=== PATIENT | female | born 1950 | race Caucasian/White ===

== ENCOUNTER 2018-10-29 12:19 | Emergency (ER) | payer MEDICARE, OTHER ==
[~2018-10-29] VITALS: Ht 170.2 cm; Wt 104.3 kg
[2018-10-29 12:19] VITALS: BP 142/78
[2018-10-29] MEDS ORDERED: VANCOMYCIN 1 GM in IV D5W 250 ML IV ONE (13:00)
[2018-10-29] MEDS ORDERED: GENTAMICIN 80 MG in IV D5W 50 ML IV ONE (13:00)
== END 2018-10-29 13:37 | disposition home or self-care (01) ==
LOC: ER 12:21
DX: S81.812A Laceration without foreign body, left lower leg, initial encounter (principal); W22.8XXA Striking against or struck by other objects, initial encounter; Y93.89 Activity, other specified; Y92.89 Other specified places as the place of occurrence of the external cause; Y99.8 Other external cause status
CPT/HCPCS: 99283; A4606; J1580; J7060; Z7610

== ENCOUNTER 2018-10-30 11:39 | Outpatient (CLI) | payer MEDICARE, OTHER ==
[2018-10-30] MEDS ORDERED: TETANUS TOXOID ADSORBED IM ONE (13:00)
== END 2018-10-30 23:59 | disposition home or self-care (01) ==
LOC: OPD 11:39
PROVIDERS: ATTEND Podiatrist
DX: Z75.3 Unavailability and inaccessibility of health-care facilities (principal)
CPT/HCPCS: 73590-TC; 90714

== ENCOUNTER 2018-11-01 14:09 | Inpatient (IN) | payer MEDICARE, OTHER ==
[~2018-11-01] VITALS: Ht 170.2 cm; Wt 99.8 kg
--- NOTE | 2018-11-01 14:25 | NUR ---
PT BIB SELF SENT HERE BY PCP FOR ADMISSION FOR LEFT LEG WOUND DEBRIDEMENT, PT IS AAOX4, NOT IN RESPIRATORY DISTRESS, V/S STABLE, KEPT RESTED AND COMFORTABLE.
[2018-11-01] MEDS ORDERED: PIPERACILLIN /TAZOBACTAM 3.375 G in IV D5W 50 ML IV ONE (14:30)
--- NOTE | 2018-11-01 14:32 | NUR ---
PT LABS DRAWNED AND SENT TO LAB.
[2018-11-01] MEDS ORDERED: ALPR2TAB7 PO (14:47)
[2018-11-01] MEDS ORDERED: ALBU8.5H8 IH (14:47)
[2018-11-01] MEDS ORDERED: ESTR10TA VG (14:47)
[2018-11-01] MEDS ORDERED: CYAN10009 PO (14:47)
[2018-11-01] MEDS ORDERED: PHEN15CA PO (14:47)
[2018-11-01] MEDS ORDERED: ARIP10TA9 PO (14:47)
[2018-11-01] MEDS ORDERED: BENA10TA9 PO (14:47)
[2018-11-01] MEDS ORDERED: ERGO500014 PO (14:47)
[2018-11-01] MEDS ORDERED: NYST15PO4 TP (14:47)
[2018-11-01] MEDS ORDERED: FLUO60SO3 TP (14:47)
[2018-11-01] MEDS ORDERED: METF-440 PO (14:47)
[2018-11-01] MEDS ORDERED: FURO-144 PO (14:47)
[2018-11-01] MEDS ORDERED: ATOR40TA PO (14:47)
[2018-11-01] MEDS ORDERED: ASPI-1169 PO (14:47)
[2018-11-01] MEDS ORDERED: METO25TA3 PO (14:47)
[2018-11-01] MEDS ORDERED: METH10TA2 PO (14:47)
[2018-11-01] MEDS ORDERED: OXYB5TAB11 PO (14:47)
[2018-11-01 14:49] LABS: BASOPHILS # (AUTO) 0.1 /CMM (0.0-0.2); BASOPHILS % (AUTO) 1.2 % (0.0-2.0); EOSINOPHILS % (AUTO) 3.4 % (0.0-6.0); HEMATOCRIT 30 % (33-45); HEMOGLOBIN 9.7 g/dL (11.5-14.8); LYMPHOCYTES # (AUTO) 3.7 /CMM (0.8-4.8); LYMPHOCYTES % (AUTO) 34.1 % (20.0-44.0); MEAN CORPUSCULAR HGB CONC 32 g/dl (31.0-36.0); MEAN CORPUSCULAR VOLUME 90 fL (82-100); MONOCYTES # (AUTO) 1.2 /CMM (0.1-1.30); MONOCYTES % (AUTO) 11.1 % (2.0-12.0); NEUTROPHILS # (AUTO) 5.5 /CMM (1.8-8.9); NEUTROPHILS % (AUTO) 50.2 % (43.0-81.0); PLATELET COUNT (AUTO) 471 /CMM (150-450); RED BLOOD CELL COUNT(AUTO) 3.34 MIL/uL (4.0-5.2); WHITE BLOOD COUNT (AUTO) 10.9 K/uL (4.3-11.0)
--- NOTE | 2018-11-01 14:50 | NUR ---
TECH AT BEDSIDE FOR XRAY.
[2018-11-01] MEDS ORDERED: RISP0.253 PO (14:54)
[2018-11-01] MEDS ORDERED: VENL75CA56 PO (14:54)
[2018-11-01] MEDS ORDERED: BENA20TA78 PO (14:54)
[2018-11-01] MEDS ORDERED: DIVA250T PO (14:54)
[2018-11-01] MEDS ORDERED: DEXL60CA3 PO (14:54)
[2018-11-01 15:02] LABS: CALCIUM, SERUM 8.9 mg/dL (8.5-10.1); CREATININE 0.9 mg/dL (0.6-1.3); POTASSIUM 4.4 mmol/L (3.5-5.1)
[2018-11-01 15:18] LABS: ALBUMIN 3.2 g/dL (3.4-5.0); BILIRUBIN,DIRECT 0.1 mg/dL (0.0-0.2); BILIRUBIN,TOTAL 0.2 mg/dL (0.2-1.0); TOTAL PROTEIN, SERUM 7.5 g/dL (6.4-8.2)
--- NOTE | 2018-11-01 15:48 | NUR ---
WOUND CLEANING AND DRESSING DONE BY DOCUMENT PREPARATION SPECIALIST.
--- NOTE | 2018-11-01 16:55 | NUR ---
REPORT GIVEN TO BERNARD SPANN FOR DYLAN.
[2018-11-01] MEDS ORDERED: ONDANSETRON HCL/PF 4 MG/2 ML VIAL IVP PRN (19:00)
[2018-11-01] MEDS ORDERED: ACETAMINOPHEN 325 MG TABLET PO PRN (19:00)
--- NOTE | 2018-11-01 19:15 | NUR ---
MS/RN NOTES RECEIVED PT. LYING IN BED. PT. IS AWAKE, ALERT AND ORIENTED X4. BREATHING EVEN AND UNLABORED ON ROOM AIR. NO SOB, RESPIRATORY DISTRESS OR COMPLAINTS OF PAIN NOTED AT THIS TIME. ORIENTED PT. TO ROOM. PT. WITH LEFT AC 20 GAUGE IV SALINE LOCK PRESENT, PATENT AND INTACT. PT. WITH LEFT LOWER LEG DRESSING PRESENT, CLEAN, DRY AND INTACT. BED LOCKED AND IN LOWEST POSITION, SIDE RAILS UP X2, CALL LIGHT WITHIN REACH, WILL CONTINUE TO MONITOR FOR CHANGES.
[2018-11-01] MEDS ORDERED: FEE PK DOSING 1 MIN EA MC ONE (19:19)
[2018-11-01 20:00] VITALS: BP 148/81
[2018-11-01] MEDS ORDERED: METHADONE HCL 10 MG TABLET PO SCH (21:00)
[2018-11-01] MEDS ORDERED: VANCOMYCIN 1.25 GM in IV D5W 500 ML IV SCH (21:00)
[2018-11-01] MEDS: risperiDONE 0.25 MG TABLET PO SCH (21:16)
[2018-11-01] MEDS: DIVALPROEX SODIUM 250 MG TABLET.DR PO SCH (21:18)
[2018-11-01] MEDS: ATORVASTATIN 40 MG TABLET PO SCH (21:18)
[2018-11-02] MEDS: ZOLPIDEM TARTRATE 5 MG TABLET PO PRN (01:09)
--- NOTE | 2018-11-02 04:30 | NUR ---
MS/RN NOTES PER PHARMACY UNABLE TO VERIFY PT. METHADONE MEDICATION UNTIL VERIFIED WITH MD OR CLINIC THAT ORDERED THE MEDICATION FOR THE PT. PT. STATES IT WAS ORDERED BY HER PAIN MANAGEMENT DOCTER: MD DEE . WILL ENDORSE TO DAYSHIFT NURSE TO FOLLOW UP WITH VERIFYING MEDICATION AND NOTIFYING PHARMACY.
[2018-11-02 06:30] LABS: BASOPHILS # (AUTO) 0.1 /CMM (0.0-0.2); BASOPHILS % (AUTO) 1.3 % (0.0-2.0); EOSINOPHILS % (AUTO) 5.9 % (0.0-6.0); HEMATOCRIT 27 % (33-45); HEMOGLOBIN 8.8 g/dL (11.5-14.8); LYMPHOCYTES # (AUTO) 3.6 /CMM (0.8-4.8); LYMPHOCYTES % (AUTO) 36.5 % (20.0-44.0); MEAN CORPUSCULAR HGB CONC 33 g/dl (31.0-36.0); MEAN CORPUSCULAR VOLUME 88 fL (82-100); MONOCYTES # (AUTO) 1.2 /CMM (0.1-1.30); MONOCYTES % (AUTO) 11.9 % (2.0-12.0); NEUTROPHILS # (AUTO) 4.3 /CMM (1.8-8.9); NEUTROPHILS % (AUTO) 44.4 % (43.0-81.0); PLATELET COUNT (AUTO) 443 /CMM (150-450); RED BLOOD CELL COUNT(AUTO) 3.03 MIL/uL (4.0-5.2); WHITE BLOOD COUNT (AUTO) 9.8 K/uL (4.3-11.0)
[2018-11-02 06:47] LABS: THYROID STIMULATING HORMONE 3.148 uIU/mL (0.358-3.74)
--- NOTE | 2018-11-02 06:50 | NUR ---
MS/RN NOTES PT. IS LYING IN BED RESTING. BREATHING EVEN AND UNLABORED ON ROOM AIR. NO SOB, RESPIRATORY DISTRESS OR COMPLAINTS OF PAIN NOTED AT THIS TIME. PT. WITH LEFT AC 20 GAUGE IV SALINE LOCK PRESENT, PATENT AND INTACT. PT. WITH LEFT LOWER LEG DRESSING PRESENT, CLEAN, DRY AND INTACT. ALL PT. NEEDS MET. PT. HAS REMAIND NPO SINCE 109 PENDING LEFT LEG WOUND DEBRIDEMENT TODAY. BED LOCKED AND IN LOWEST POSITION, SIDE RAILS UP X2, CALL LIGHT WITHIN REACH, WILL ENDORSE TO DAYSHIFT NURSE FOR CONTINUITY OF CARE.
[2018-11-02 06:52] LABS: ALBUMIN 2.5 g/dL (3.4-5.0); BILIRUBIN,TOTAL 0.3 mg/dL (0.2-1.0); CALCIUM, SERUM 8.6 mg/dL (8.5-10.1); CREATININE 0.9 mg/dL (0.6-1.3); MAGNESIUM 1.7 mg/dL (1.8-2.4); PHOSPHORUS 4.6 mg/dL (2.5-4.9); POTASSIUM 3.9 mmol/L (3.5-5.1); TOTAL PROTEIN, SERUM 6.3 g/dL (6.4-8.2)
--- NOTE | 2018-11-02 07:55 | NUR ---
MS/RN OPENING NOTE PATIENT IN BED IN STABLE CONDITION. A/O X 3. NO SIGNS OF ACUTE DISTRESS. NO COMPLAIN OF PAIN OR DISCOMFORT. NPO STATUS AT THIS TIME EXCEPT MEDS FOR POSSIBLE LEFT LEG WOUND DEBRIDEMENT. ALL NEEDS ATTENDED TO. CALL LIGHT WITHIN REACH. WILL CONTINUE TO MONITOR TO ENSURE SAFETY.
[2018-11-02 08:18] VITALS: BP 130/66
[2018-11-02] MEDS: VENLAFAXINE XR 75 MG CAP.SR.24H PO SCH (08:41)
[2018-11-02] MEDS: METOPROLOL SUCCINATE 50 MG TAB.SR.24H PO SCH (08:41)
[2018-11-02] MEDS: VANCOMYCIN 1 GM in IV D5W 250 ML IV SCH ×2 (08:41→21:52)
[2018-11-02] MEDS: DIVALPROEX SODIUM 250 MG TABLET.DR PO SCH ×2 (08:42→21:58)
[2018-11-02] MEDS: OXYBUTYNIN CHLORIDE 5 MG TABLET PO SCH ×2 (08:42→17:22)
[2018-11-02] MEDS: BENAZEPRIL HCL 20 MG TABLET PO SCH (08:44)
--- NOTE | 2018-11-02 09:55 | NUR ---
MS/RN SPOKE WITH ALYSSA FROM DR FRANCOIS'S OFFICE AND MADE AWARE NEED ORDERS FOR SURGERY TODAY SCHEDULE LATER AROUND 1130AM FOR POSSIBLE LEFT LEG WOUND DEBRIDEMENT AND CONSENT NEEDED.
--- NOTE | 2018-11-02 10:19 | NUR ---
MS/RN RECEIVED CALL FROM DR FRANCOIS FOR TO OBTAIN PROCEDURE CONSENT FOR DEBRIEDMENT OF NECROTIC TISSUE LEFT LEG.
[2018-11-02] MEDS: Magnesium 1GM/D5W 100ML PREMIX 100 ML IV SCH ×2 (10:43→14:02)
[2018-11-02] MEDS ORDERED: LIDOCAINE HCL/PF 1% 30 ML SDV ONE (12:21)
[2018-11-02] MEDS ORDERED: BUPIVACAINE MPF 0.5% W/EPI INJ 30 ML VIAL ONE (12:21)
--- NOTE | 2018-11-02 13:35 | NUR ---
MS/RN RETURNED FROM S/P LEFT LEG NECROTIC TISSUE DEBERIEDMENT. NO SIGNS OF ACUTE DISTRESS. NO COMPLAIN OF PAIN OR DISCOMFORT. ALL NEEDS ATTENDED TO. CALL LIGHT WITHIN REACH. WILL CONTINUE TO MONITOR TO ENSURE SAFETY.
--- NOTE | 2018-11-02 14:03 | NUR ---
MS/RN MAGNESIUM DUE AT 11:14AM ADMINISTERED LATE SECONDARY TO PATIENT HAVING SURGERY AND NOT ON FLOOR.
[2018-11-02 16:22] VITALS: BP 134/76
[2018-11-02] MEDS: ASPIRIN 81 MG TAB.CHEW PO SCH (17:22)
[2018-11-02] MEDS: risperiDONE 0.25 MG TABLET PO SCH (17:22)
[2018-11-02] MEDS: ATORVASTATIN 40 MG TABLET PO SCH (17:22)
--- NOTE | 2018-11-02 18:39 | NUR ---
MS/RN CLOSING NOTE PATIENT IN BED IN STABLE CONDITION. A/O X 4. NO SIGNS OF ACUTE DISTRESS. NO COMPLAIN OF PAIN OR DISCOMFORT. AMBULATES TO BATHROOM WITH ASSIST. S/P LEFT LOWER LEG NECROTIC TISSUE DEBRIDEMENT, DRESSING IN PLACE. ALL NEEDS ATTENDED TO. CALL LIGHT WITHIN REACH. WILL ENDORSE TO NEXT SHIFT FOR CONTINUITY OF CARE.
--- NOTE | 2018-11-02 19:12 | NUR ---
MS/RN NOTES RECEIVED PT. LYING IN BED RESTING. PT. IS EASILY AROUSABLE TO NAME. PT. IS AWAKE, ALERT AND ORIENTED X4. BREATHING EVEN AND UNLABORED ON ROOM AIR. NO SOB, RESPIRATORY DISTRESS OR COMPLAINTS OF PAIN NOTED AT THIS TIME. PT. WITH LEFT AC 20 GAUGE IV SALINE LOCK PRESENT, PATENT AND INTACT. PT. WITH LEFT LOWER LEG POST OP DRESSING PRESENT, CLEAN, DRY AND INTACT. NO BLEEDING OR DRAINAGE NOTED. PT. BILATERAL PEDAL PULSES +3. PT. EDUCATED ON CALLING FOR ASSISTANCE BEFORE AMBULATING TO BATHROOM. PT. VERBALIZED UNDERSTANDING. BED LOCKED AND IN LOWEST POSITION, SIDE RAILS UP X2, BED ALARM ON, CALL LIGHT WITHIN REACH, WILL CONTINUE TO MONITOR.
[2018-11-02 20:00] VITALS: BP 135/73
[2018-11-02] MEDS: METHADONE HCL 10 MG TABLET PO SCH (21:58)
[2018-11-03] MEDS: ZOLPIDEM TARTRATE 5 MG TABLET PO PRN (00:34)
[2018-11-03] MEDS: HYDROCODONE/APAP 10/325MG 1 EA TABLET PO PRN ×3 (03:12→17:39)
[2018-11-03 07:00] VITALS: BP 146/80
--- NOTE | 2018-11-03 07:00 | NUR ---
MS/RN NOTES PT. IS LYING IN BED RESTING. BREATHING EVEN AND UNLABORED ON ROOM AIR. NO SOB, RESPIRATORY DISTRESS OR COMPLAINTS OF PAIN NOTED AT THIS TIME. PT. WITH LEFT AC 20 GAUGE IV SALINE LOCK PRESENT, PATENT AND INTACT. PT. WITH LEFT LOWER LEG POST OP DRESSING PRESENT, CLEAN, DRY AND INTACT. NO BLEEDING OR DRAINAGE NOTED. PT. BILATERAL PEDAL PULSES +3 THROUGHOUT SHIFT. ALL PT. NEEDS MET. BED LOCKED AND IN LOWEST POSITION, SIDE RAILS UP X2, BED ALARM ON, CALL LIGHT WITHIN REACH, WILL ENDORSE TO DAYSHIFT NURSE FOR CONTINUITY OF CARE.
--- NOTE | 2018-11-03 07:40 | NUR ---
MS/RN OPENING NOTE PATIENT IN BED IN STABLE CONDITION. A/O X 4. NO SIGNS OF ACUTE DISTRESS. NO COMPLAIN OF PAIN OR DISCOMFORT. ALL NEEDS ATTENDED TO. CALL LIGHT WITHIN REACH. WILL CONTINUE TO MONITOR TO ENSURE SAFETY.
[2018-11-03 08:00] VITALS: BP 152/82
[2018-11-03 08:32] LABS: BASOPHILS # (AUTO) 0.1 /CMM (0.0-0.2); EOSINOPHILS % (AUTO) 1.4 % (0.0-6.0); HEMATOCRIT 27 % (33-45); HEMOGLOBIN 8.9 g/dL (11.5-14.8); LYMPHOCYTES % (AUTO) 34.7 % (20.0-44.0); MEAN CORPUSCULAR HGB CONC 33 g/dl (31.0-36.0); MEAN CORPUSCULAR VOLUME 88 fL (82-100); MONOCYTES # (AUTO) 1.3 /CMM (0.1-1.30); MONOCYTES % (AUTO) 11.3 % (2.0-12.0); NEUTROPHILS % (AUTO) 51.6 % (43.0-81.0); PLATELET COUNT (AUTO) 450 /CMM (150-450); RED BLOOD CELL COUNT(AUTO) 3.09 MIL/uL (4.0-5.2); WHITE BLOOD COUNT (AUTO) 11.6 K/uL (4.3-11.0)
[2018-11-03 08:36] LABS: CALCIUM, SERUM 8.2 mg/dL (8.5-10.1); CREATININE 0.8 mg/dL (0.6-1.3); MAGNESIUM 2.2 mg/dL (1.8-2.4); POTASSIUM 3.8 mmol/L (3.5-5.1)
[2018-11-03] MEDS: BENAZEPRIL HCL 20 MG TABLET PO SCH (08:36)
[2018-11-03] MEDS: VENLAFAXINE XR 75 MG CAP.SR.24H PO SCH (08:36)
[2018-11-03] MEDS: OXYBUTYNIN CHLORIDE 5 MG TABLET PO SCH ×2 (08:36→17:39)
[2018-11-03] MEDS: DIVALPROEX SODIUM 250 MG TABLET.DR PO SCH ×2 (08:36→20:07)
[2018-11-03] MEDS: VANCOMYCIN 1 GM in IV D5W 250 ML IV SCH ×2 (08:36→20:09)
[2018-11-03] MEDS: METOPROLOL SUCCINATE 50 MG TAB.SR.24H PO SCH (08:37)
[2018-11-03] MEDS: METHADONE HCL 10 MG TABLET PO SCH ×2 (08:37→20:08)
[2018-11-03 16:00] VITALS: BP 152/86
[2018-11-03] MEDS: risperiDONE 0.25 MG TABLET PO SCH (17:39)
[2018-11-03] MEDS: ATORVASTATIN 40 MG TABLET PO SCH (17:39)
[2018-11-03] MEDS: ASPIRIN 81 MG TAB.CHEW PO SCH (17:39)
--- NOTE | 2018-11-03 19:20 | NUR ---
MS RN OPENING NOTE RECEIVED PATIENT IN BED IN STABLE CONDITION. A/O X 3. NO SIGNS OF ACUTE DISTRESS. NO COMPLAIN OF PAIN OR DISCOMFORT AT HIS TIME. IV ACCESS TO LAC, SL, INTACT PATENT. BRP WITH ASSIST. ALL NEEDS ATTENDED TO. CALL LIGHT WITHIN REACH. WILL CONTINUE TO MONITOR TO ENSURE SAFETY.
--- NOTE | 2018-11-03 19:28 | NUR ---
MS/RN CLOSING NOTE PATIENT IN BED IN STABLE CONDITION. A/O X 4. NO SIGNS OF ACUTE DISTRESS. NO COMPLAIN OF PAIN OR DISCOMFORT. ALL NEEDS ATTENDED TO. CALL LIGHT WITHIN REACH. WILL ENDORSE TO NEXT SHIFT FOR CONTINUITY OF CARE.
[2018-11-03 20:00] VITALS: BP 146/80
--- NOTE | 2018-11-03 20:08 | NUR ---
MS RN NOTE PATIENT REQUESTED TO TAKE SCHEDULED METHADONE & OTHER SCHEDULED MEDS AT THIS TIME SO SHE COULD TRY TO GO TO SLEEP. PATIENT'S BP WAS CHECKED BEFORE GIVING SCHEDULED MEDS, 143/77, 64, 20, 98, 97% AT RA. NO COMPLICATIONS NOTED. WILL MONITOR CLOSELY.
[2018-11-03 21:49] VITALS: BP 146/80
[2018-11-04] MEDS: ZOLPIDEM TARTRATE 5 MG TABLET PO PRN (00:54)
--- NOTE | 2018-11-04 00:54 | NUR ---
PRN AMBIEN GIVEN PATIENT REQUESTED TO GET AMBIEN AT THIS TIME FOR SLEEPLESSNESS, PRN AMBIEN GIVEN, WILL REASSESS FOR EFFECTIVENESS.
[2018-11-04 06:27] LABS: CALCIUM, SERUM 8.6 mg/dL (8.5-10.1); CREATININE 0.7 mg/dL (0.6-1.3)
[2018-11-04] MEDS: HYDROCODONE/APAP 10/325MG 1 EA TABLET PO PRN ×2 (06:32→18:06)
--- NOTE | 2018-11-04 06:32 | NUR ---
PRN NORCO GIVEN PATIENT REQUESTED TO GET NORCO FOR BACK PAIN 04/22, BP 152/79, 64, 20, 97.4. PRN NORCO GIVEN, WILL REASSESS FOR EFFECTIVENESS.
--- NOTE | 2018-11-04 06:55 | NUR ---
MS RN CLOSING NOTE PATIENT SLEPT WELL AFTER TAKING AMBIEN AT NIGHT & IN STABLE CONDITION. A/O X 3. NO SIGNS OF ACUTE DISTRESS. COMPLAIN OF BACK PAIN WAS VERBALIZED, PRN NORCO GIVEN. IV ACCESS TO LAC, SL, INTACT PATENT. BRP WITH HER WALKER/STEADY WITH THE WALKER. ALL NEEDS ATTENDED TO. BED IN LOW LOCKED POSITION. CALL LIGHT WITHIN REACH. WILL ENDORSE TO AM RN.
--- NOTE | 2018-11-04 07:45 | NUR ---
MS RN OPENING NOTES RECEIVED PT LAYING IN BED. PT IS A/O X43, AFEBRILE. EASILY AROUSABLE. RESPIRATIONS ARE EVEN AND UNLABORED, NOT IN ANY ACUTE DISTRESS NOTED. PT DENIES ANY PAIN AT THIS TIME, NO C/O SOB, N/V. IV SITE IS INTACT TO LAC, NO INFILTRATION NOTED. DRESSING KEPT CLEAN AND DRY. SAFETY MEASURES ARE IN PLACE. INSTRUCTED PT TO USE CALL LIGHT WHEN ASSISTANCE IS NEEDED, CALL LIGHT IS LEFT WITHIN REACH. WILL CONTINUE TO MONITOR THROUGHOUT SHIFT FOR CONTINUITY OF CARE.
[2018-11-04 08:00] VITALS: BP 144/71
[2018-11-04] MEDS: VENLAFAXINE XR 75 MG CAP.SR.24H PO SCH (08:38)
[2018-11-04] MEDS: DIVALPROEX SODIUM 250 MG TABLET.DR PO SCH ×2 (08:38→21:17)
[2018-11-04] MEDS: METHADONE HCL 10 MG TABLET PO SCH ×2 (08:38→21:17)
[2018-11-04] MEDS: OXYBUTYNIN CHLORIDE 5 MG TABLET PO SCH ×2 (08:38→17:16)
[2018-11-04] MEDS: METOPROLOL SUCCINATE 50 MG TAB.SR.24H PO SCH (08:40)
[2018-11-04] MEDS: BENAZEPRIL HCL 20 MG TABLET PO SCH (08:40)
[2018-11-04] MEDS: VANCOMYCIN 1 GM in IV D5W 250 ML IV SCH ×2 (08:40→21:17)
[2018-11-04 12:00] VITALS: BP 144/71
--- NOTE | 2018-11-04 15:00 | NUR ---
MS RN NOTES-- PT SEEN AND EXAMINED BY DR. FRANCOIS AND STATED NOT TO TAKE OUT THE DRESSING TO LLE. PT MADE AWARE.
[2018-11-04 16:00] VITALS: BP 138/77
[2018-11-04] MEDS: ASPIRIN 81 MG TAB.CHEW PO SCH (17:15)
[2018-11-04] MEDS: ATORVASTATIN 40 MG TABLET PO SCH (17:16)
[2018-11-04] MEDS: risperiDONE 0.25 MG TABLET PO SCH (17:16)
--- NOTE | 2018-11-04 18:33 | NUR ---
MS WAGNER CLOSING NOTES ALL DUE MEDS GIVEN, NEEDS MET AND RENDERED. PT REMAINS A/O X3, USING PEN AND PAPER. PT IS DEAF AND MUTE BUT IS ABLE TO MAKE NEEDS KNOWN. RESPIRATIONS ARE EVEN AND UNLABORED, NOT IN ANY ACUTE DISTRESS NOTED. DENIES ANY CHEST PAIN, SOB,N/V. IV SITE TO LAC INTACT, NO INFILTRATION NOTED. DRESSING KEPT CLEAN AND DRY. SAFETY MEASURES ARE IN PLACE. BED IS IN ITS LOCKED AND LOWEST POSITION. REMINDED PT TO USE CALL LIGHT WHEN ASSISTANCE IS NEEDED, CALL LIGHT IS LEFT WITHIN REACH. WILL ENDORSE TO NEXT SHIFT FOR CONTINUITY OF CARE. Addendum: 11/04/18 at 1836 by GRZEGORZ FORREST RN INCORRECT CHART.
--- NOTE | 2018-11-04 18:36 | NUR ---
MS RN CLOSING NOTES ALL DUE MEDS GIVEN, NEEDS MET AND RENDERED. PT REMAINS A/O X3, AFEBRILE. RESPIRATIONS ARE EVEN AND UNLABORED, NOT IN ANY ACUTE DISTRESS NOTED. DENIES ANY CHEST PAIN, SOB,N/V. IV SITE TO LAC INTACT, NO INFILTRATION NOTED. DRESSING KEPT CLEAN AND DRY. SAFETY MEASURES ARE IN PLACE. BED IS IN ITS LOCKED AND LOWEST POSITION. REMINDED PT TO USE CALL LIGHT WHEN ASSISTANCE IS NEEDED, CALL LIGHT IS LEFT WITHIN REACH. WILL ENDORSE TO NEXT SHIFT FOR CONTINUITY OF CARE.
[2018-11-04 20:00] VITALS: BP 141/70
--- NOTE | 2018-11-04 20:00 | NUR ---
MS/RN OPENING NOTES RECEIVED PATIETN IN BED, RESTING COMFORTABLY IN BED, ABLE TO MAKE GOOD EYE CONTACT, COOPERATIVE TO CARE, VERBALIZES NEEDS, RESPIRATIONS EVEN AND UNLABORED, CALL LIGHTS WITHIN REACH, BED LOCKED, NO PAIN REPORTED AND OBSERVED.. LEFT LEG WOUND. S/P DEBRIDEMENT, WILL MONITOR, BED LOCKED.
[2018-11-05] MEDS: ZOLPIDEM TARTRATE 5 MG TABLET PO PRN (01:32)
--- NOTE | 2018-11-05 01:34 | NUR ---
MS/RN NOTES PATIENT REQUESTED FOR SLEEP MEDICATION, UNABLE TO SLEEP, NEEDED MEDICATION FOR SLEEP AMNIEN GIVEN
[2018-11-05] MEDS: HYDROCODONE/APAP 10/325MG 1 EA TABLET PO PRN (06:25)
--- NOTE | 2018-11-05 06:28 | NUR ---
MS/RN NOTES PATIENT VERBALIZED PAIN 7/10 ALL OVER BODY, REQUESTING FOR PAIN NORCO 10-325 MG PO, WILL MONITOR, PAIN RELIEF.
--- NOTE | 2018-11-05 06:43 | NUR ---
325-1 MS/RN NOTES PATIENT RESTING COMFORTABLY, SLEPT INTERMITENTLY, RESPIRATIONS EVEN AND UNLABORED, SKIN WARM TO TOUCH, ALERT, ORIENTED AND PARTICIPATIVE TO CARE, ASSISTED TO BATHROOM, MONITORED AND MANAGED FOR PAIN. WILL ENDORSE TO AM RN FOR DYLAN.
--- NOTE | 2018-11-05 07:40 | NUR ---
MS RN OPENING NOTES RECEIVED PT LAYING IN BED. PT IS A/O X3, AFEBRILE. EASILY AROUSABLE. RESPIRATIONS ARE EVEN AND UNLABORED, NOT IN ANY ACUTE DISTRESS NOTED. PT DENIES ANY PAIN AT THIS TIME, NO C/O SOB, N/V. IV SITE IS INTACT TO L HAND, NO INFILTRATION NOTED. DRESSING KEPT CLEAN AND DRY. SAFETY MEASURES ARE IN PLACE. INSTRUCTED PT TO USE CALL LIGHT WHEN ASSISTANCE IS NEEDED, CALL LIGHT IS LEFT WITHIN REACH. WILL CONTINUE TO MONITOR THROUGHOUT SHIFT FOR CONTINUITY OF CARE.
[2018-11-05 08:00] VITALS: BP 134/82
[2018-11-05 08:03] LABS: CALCIUM, SERUM 8.7 mg/dL (8.5-10.1); CREATININE 0.9 mg/dL (0.6-1.3)
[2018-11-05] MEDS: VENLAFAXINE XR 75 MG CAP.SR.24H PO SCH (08:49)
[2018-11-05] MEDS: METHADONE HCL 10 MG TABLET PO SCH (08:49)
[2018-11-05] MEDS: DIVALPROEX SODIUM 250 MG TABLET.DR PO SCH (08:49)
[2018-11-05] MEDS: OXYBUTYNIN CHLORIDE 5 MG TABLET PO SCH (08:49)
[2018-11-05 08:50] VITALS: BP 134/82
[2018-11-05] MEDS: BENAZEPRIL HCL 20 MG TABLET PO SCH (08:50)
[2018-11-05] MEDS: VANCOMYCIN 1 GM in IV D5W 250 ML IV SCH (08:50)
[2018-11-05] MEDS: METOPROLOL SUCCINATE 50 MG TAB.SR.24H PO SCH (08:50)
--- NOTE | 2018-11-05 11:00 | NUR ---
MS RN NOTES-- RECEIVED A CALL FROM DR. FRANCOIS FOR ORDERS TO DISCHARGE THE PT HOME WITH [facility], RESUME HOME MEDICATIONS, START KEFLEX 500MG PO TID X10 DAYS. PER DR. FRANCOIS, HE SPOKE WITH DR. LÓPEZ AND AGREED TO DISCHARGE THE PATIENT.
--- NOTE | 2018-11-05 13:45 | NUR ---
MS RN NOTES-- RECEIVED A CALL BACK FROM DR. LÓPEZ STATING IT IS OKAY TO DISCHARGE THE PATIENT BACK HOME.
--- NOTE | 2018-11-05 13:46 | NUR ---
MS RN NOTES-- EXPLAINED DISCHARGE PAPERWORK TO PT WITH VERBAL AND WRITTEN UNDERSTANDING.
--- NOTE | 2018-11-05 14:45 | NUR ---
MS BILLING REPRESENTATIVE NOTE PT DISCHARGED TO HOME WITH HOME HEALTH SERVICES. PT IS A/OX4, AFEBRILE. RESPIRATIONS ARE EVEN AND UNLABORED, NOT IN ANY ACUTE DISTRESS NOTED. PUPILS ARE REACTIVE TO LIGHT, BILATERAL HAND BILLET HEADER ARE STRONG AND EQUAL. PT DENIES ANY PAIN AT THIS TIME, NO C/O SOB, N/V. ABDOMEN IS SOFT AND NONDISTENDED, BOWEL SOUNDS ARE PRESENT IN ALL 4 QUADRANTS UPON AUSCULTATION. DENIES ANY BLADDER DISCOMFORT. DRESSING KEPT CLEAN AND DRY AND INTACT TO LLE. IV ACCESS REMOVED, APPLIED PRESSURE AND TOLERATED WELL. ID BANDS REMOVED. ALL BELONGINGS TAKEN WITH PT. PT LEFT IN STABLE CONDITION VIA TAXI, ACCOMPANIED TO TAXI BY 1 STAFF ASSISTANCE W/ FWW.
== END 2018-11-05 14:49 | disposition home health service (06) | DRG 580 ==
LOC: ER 14:11 → MED 16:42
PROVIDERS: ADMIT Family Medicine; ATTEND Internal Medicine
PROC: 0KBT0ZZ Excision of Left Lower Leg Muscle, Open Approach (ICD-10-PCS; principal; 2018-11-01)
DX: L03.116 Cellulitis of left lower limb (principal); E87.1 Hypo-osmolality and hyponatremia; E87.2 Acidosis; E44.0 Moderate protein-calorie malnutrition; L98.495 Non-pressure chronic ulcer of skin of other sites with muscle involvement without evidence of necrosis; I10 Essential (primary) hypertension; E78.5 Hyperlipidemia, unspecified; R73.03 Prediabetes; D63.8 Anemia in other chronic diseases classified elsewhere; E83.42 Hypomagnesemia; E86.1 Hypovolemia; F17.210 Nicotine dependence, cigarettes, uncomplicated; Z68.34 Body mass index [BMI] 34.0-34.9, adult; M54.40 Lumbago with sciatica, unspecified side; G89.29 Other chronic pain; I87.2 Venous insufficiency (chronic) (peripheral); S81.822A Laceration with foreign body, left lower leg, initial encounter; B95.1 Streptococcus, group B, as the cause of diseases classified elsewhere; F99 Mental disorder, not otherwise specified; I25.10 Atherosclerotic heart disease of native coronary artery without angina pectoris; E66.01 Morbid (severe) obesity due to excess calories; Z80.3 Family history of malignant neoplasm of breast; Z85.3 Personal history of malignant neoplasm of breast; Z90.710 Acquired absence of both cervix and uterus
CPT/HCPCS: 36415; 71045-TC; 73590-TC; 80048-TC; 80053-TC; 80061-TC; 80076-TC; 80202-TC; 83540-TC; 83605-TC; 83735-TC; 84100-TC; 84443-TC; 85025-TC; 85730-TC; 87040-TC; 87070-TC; 87081-TC; 90714; A4606; A6402; G0378; J1100; J2543; J2704; J3370; J3475; J3490; J7030; J7050; J7060; Z7610

== ENCOUNTER 2019-04-20 11:10 | Inpatient (IN) | payer MEDICARE, OTHER ==
[~2019-04-20] VITALS: Ht 170.2 cm; Wt 103.9 kg
[~2019-04-20 11:10] MED LIST: ASPI-1169 PO; ATOR40TA PO; BENA20TA78 PO; DEXL60CA3 PO; DIVA250T PO; METF-440 PO; METH10TA2 PO; METO25TA3 PO; OXYB5TAB11 PO; RISP0.253 PO; VENL75CA56 PO
--- NOTE | 2019-04-20 11:59 | NUR ---
PT BROUGHT IN BY PARAMEDICS From Home Generalized Weakness/Fall/NOT able to care for self PT NOTED TO HAVE WALKER BILATERAL LEGS SWOLLEN PT ALERT AND ORIENTED X 3 REQUEST BED BACK BE LFTED UP AND DOWN WILL CONTINUE TO EVALUATE
[2019-04-20] MEDS ORDERED: IV NS 0.9% 500 ML BAG IV ONE (12:30)
[2019-04-20 12:31] LABS: BASOPHILS % (AUTO) 0.2 % (0.0-2.0); HEMATOCRIT 35 % (33-45); HEMOGLOBIN 11.5 g/dL (11.5-14.8); LYMPHOCYTES # (AUTO) 1.3 /CMM (0.8-4.8); LYMPHOCYTES % (AUTO) 5.1 % (20.0-44.0); MEAN CORPUSCULAR HGB CONC 33 g/dl (31.0-36.0); MEAN CORPUSCULAR VOLUME 83 fL (82-100); MONOCYTES # (AUTO) 2.5 /CMM (0.1-1.30); MONOCYTES % (AUTO) 10.3 % (2.0-12.0); NEUTROPHILS # (AUTO) 20.6 /CMM (1.8-8.9); NEUTROPHILS % (AUTO) 84.4 % (43.0-81.0); PLATELET COUNT (AUTO) 498 /CMM (150-450); RED BLOOD CELL COUNT(AUTO) 4.25 MIL/uL (4.0-5.2); WHITE BLOOD COUNT (AUTO) 24.5 K/uL (4.3-11.0)
[2019-04-20] MEDS ORDERED: MELO15TA13 PO (13:12)
[2019-04-20] MEDS ORDERED: ALPR0.5T PO (13:12)
[2019-04-20] MEDS ORDERED: OMEP20TA20 PO (13:12)
[2019-04-20] MEDS ORDERED: MULT-447 PO (13:12)
[2019-04-20] MEDS ORDERED: ATEN50TA PO (13:12)
[2019-04-20] MEDS ORDERED: ARIP10TA9 PO (13:12)
[2019-04-20] MEDS ORDERED: CHOL200026 PO (13:12)
[2019-04-20] MEDS ORDERED: TRAZ150T75 PO (13:12)
[2019-04-20] MEDS ORDERED: ALPR1TAB2 PO (13:12)
[2019-04-20] MEDS ORDERED: FURO-144 PO (13:12)
[2019-04-20] MEDS ORDERED: METF-440 PO (13:12)
[2019-04-20 13:14] LABS: CALCIUM, SERUM 9.3 mg/dL (8.5-10.1); POTASSIUM 4.1 mmol/L (3.5-5.1)
--- NOTE | 2019-04-20 13:16 | NUR ---
PAGED DR LÓPEZ
[2019-04-20 13:20] LABS: BILIRUBIN,DIRECT 0.1 mg/dL (0.0-0.2); BILIRUBIN,TOTAL 0.6 mg/dL (0.2-1.0); TOTAL PROTEIN, SERUM 7.7 g/dL (6.4-8.2)
--- NOTE | 2019-04-20 13:31 | NUR ---
CALLED FOR TELE BED
[2019-04-20 14:00] LABS: APPEARANCE,URINE Cloudy (CLEAR); BILIRUBIN,URINE Negative (NEGATIVE); BLOOD, URINE Moderate Ery/uL (NEGATIVE); COLOR,URINE Yellow (YELLOW); KETONES,URINE Negative (NEGATIVE); LEUKOCYTE ESTERASE ,URINE Large (NEGATIVE); NITRITE, URINE Positive (NEGATIVE); PROTEIN,URINE 100 mg/dl (NEGATIVE); UGLUCOSE Negative (NEGATIVE); UROBILINOGEN,URINE 0.2 EU/dL (0.2)
[2019-04-20 14:11] LABS: WBC,URINE 51-80 /HPF (0-3)
[2019-04-20 14:12] LABS: BACTERIA,URINE 3+ /HPF (None Seen); SQUAMOUS EPITHELIAL CELL,UR Few /HPF (None Seen)
--- NOTE | 2019-04-20 14:48 | NUR ---
RECIEVED BED 326-1 REPORT WILL BE GIVEN TO LAURENT
--- NOTE | 2019-04-20 16:21 | NUR ---
RN MS NOTES Received patient on room air, no sob noted, patient denies pain at this time. Patient has a lópez catheter but is currently empty. Patient stated that she went to the restroom before they put it in. Patient;s lower extremities are taken a photo of. Groin area reddened as well, taken a photo. Patient's bed at the lowest setting, call light within reach.
[2019-04-20] MEDS: IV NS 0.9% 1,000 ML IV SCH (18:31)
--- NOTE | 2019-04-20 19:30 | NUR ---
ENVIRONMENTAL INSPECTOR OPENING NOTES Received patient sitting up in bed, alert, oriented x 2. Breathing even and unlabored. Not in any distress. Peripheral IV infusing at 75mL/hr. Tele monitor in place- sinus tach 120. As per vehicle operator technician, patient has been ST since she came into the unit. Safety measures in place; call light within reach, bed in low, locked position. Will continue to monitor accordingly
--- NOTE | 2019-04-20 19:36 | NUR ---
RN MS NOTES Patient remains on room air, no sob noted. Patient denies pain at this time. Patient has a NS IVF running at 75 ML/hour. lópez catheter is draining well at this time. medication orders from Dr. Weeks was faxed to pharmacy. Charge Nurse aware of the list. Bed at the lowest setting, call light within reach. Patient has access to the telephone.
--- NOTE | 2019-04-20 19:50 | NUR ---
RN NOTES Lab called with critical value of Troponin I- 0.653. Dr. Weeks informed. No new orders
[2019-04-20 20:00] VITALS: BP 154/80
[2019-04-20] MEDS ORDERED: ENOXAPARIN SODIUM 40 MG/0.4 ML DISP.SYRIN SQ SCH (20:00)
[2019-04-20] MEDS ORDERED: CEFTRIAXONE 1 G VIAL ONE (20:18)
[2019-04-20] MEDS: CEFTRIAXONE 1 G in IV D5W 50 ML IV SCH (20:20)
[2019-04-20] MEDS ORDERED: DOXYCYCLINE 100 MG VIAL ONE (21:26)
[2019-04-20] MEDS: DOXYCYCLINE 100 MG in IV D5W 100 ML IV SCH (21:41)
[2019-04-20] MEDS: ENOXAPARIN SODIUM 40 MG/0.4 ML DISP.SYRIN SQ SCH (21:53)
[2019-04-20] MEDS: METHADONE HCL 10 MG TABLET PO SCH (23:11)
--- NOTE | 2019-04-20 23:11 | NUR ---
RN NOTES Patient c/o lower back and R) hip pain, 06/22. Methadone 10mg PO given as ordered. Will continue to monitor
[2019-04-20] MEDS: risperiDONE 1 MG TABLET PO SCH (23:59)
[2019-04-21] VITALS: BP 139/92
[2019-04-21] MEDS: TRAZODONE 50 MG TABLET PO SCH ×2 (00:49→22:00)
[2019-04-21 04:00] VITALS: BP 121/75
[2019-04-21 06:23] LABS: BASOPHILS # (AUTO) 0.1 /CMM (0.0-0.2); BASOPHILS % (AUTO) 0.3 % (0.0-2.0); HEMATOCRIT 33 % (33-45); HEMOGLOBIN 10.7 g/dL (11.5-14.8); LYMPHOCYTES # (AUTO) 2.4 /CMM (0.8-4.8); LYMPHOCYTES % (AUTO) 10.5 % (20.0-44.0); MEAN CORPUSCULAR HGB CONC 33 g/dl (31.0-36.0); MEAN CORPUSCULAR VOLUME 84 fL (82-100); MONOCYTES # (AUTO) 2.5 /CMM (0.1-1.30); MONOCYTES % (AUTO) 10.6 % (2.0-12.0); NEUTROPHILS # (AUTO) 18.4 /CMM (1.8-8.9); NEUTROPHILS % (AUTO) 78.6 % (43.0-81.0); PLATELET COUNT (AUTO) 440 /CMM (150-450); RED BLOOD CELL COUNT(AUTO) 3.96 MIL/uL (4.0-5.2); WHITE BLOOD COUNT (AUTO) 23.4 K/uL (4.3-11.0)
[2019-04-21 06:41] LABS: CREATININE 1.2 mg/dL (0.6-1.3); POTASSIUM 3.3 mmol/L (3.5-5.1)
--- NOTE | 2019-04-21 06:50 | NUR ---
WEB SITE ADMINISTRATOR CLOSING NOTES Patient sleeping in bed, easily arousable. Breathing even and unlabored. Not in any distress. Peripheral IV infusing at 75mL/hr. Tele monitor in place- sinus tachy 118. Lozano catheter in place, draining clear, yellow urine. Safety measures in place; call cespedes within reach, bed in low, locked position. Will endorse DYLAN to oncoming RN
--- NOTE | 2019-04-21 07:09 | NUR ---
RN NOTES Telephone order from Dr. Weeks of Ava 10-325mg PO Q4H PRN for pain. Order noted and carried out
[2019-04-21] MEDS ORDERED: HYDROCODONE/APAP 10/325MG 1 EA TABLET PO PRN (07:30)
--- NOTE | 2019-04-21 07:30 | NUR ---
RN MS OPENING NOTES Patient remains on room air, no sob noted. IVF infusing at 75 mL per hour. Lozano catheter in place and is draining urine. Patient lying down comfortably in bed, no s/s of pain at this time.
[2019-04-21 08:00] VITALS: BP 116/67
[2019-04-21] MEDS: DOXYCYCLINE 100 MG in IV D5W 100 ML IV SCH (08:57)
[2019-04-21] MEDS ORDERED: VENLAFAXINE XR 75 MG CAP.SR.24H PO SCH (09:00)
[2019-04-21] MEDS ORDERED: METHADONE HCL 10 MG TABLET PO SCH ×2 (09:00)
[2019-04-21] MEDS ORDERED: METFORMIN 500 MG TABLET PO SCH (09:00)
[2019-04-21] MEDS: ARIPIPRAZOLE 5 MG TABLET PO SCH (09:04)
[2019-04-21] MEDS: METFORMIN 500 MG TABLET PO SCH ×2 (09:04→16:31)
[2019-04-21] MEDS: VENLAFAXINE XR 75 MG CAP.SR.24H PO SCH (09:05)
[2019-04-21] MEDS: BENAZEPRIL HCL 20 MG TABLET PO SCH (09:05)
[2019-04-21] MEDS: METOPROLOL SUCCINATE 50 MG TAB.SR.24H PO SCH (09:05)
[2019-04-21] MEDS: METHADONE HCL 10 MG TABLET PO SCH ×3 (09:14→16:32)
[2019-04-21] MEDS: IV NS 0.9% 1,000 ML IV SCH ×2 (09:15→20:48)
[2019-04-21] MEDS ORDERED: POTASSIUM CHLORIDE 20 MEQ TAB.PRT.SR PO SCH (09:30)
[2019-04-21 10:21] LABS: BAND % (MANUAL) 6 % (0.0-5.0); LYMPHOCYTES % (MANUAL) 11 % (16-48); MONOCYTES % (MANUAL) 6 % (0-11.0); NEUTROPHILS % (MANUAL) 77 (42-76)
[2019-04-21 16:00] VITALS: BP 123/72
[2019-04-21] MEDS: risperiDONE 1 MG TABLET PO SCH (17:07)
[2019-04-21] MEDS: ATORVASTATIN 40 MG TABLET PO SCH (17:07)
[2019-04-21] MEDS: ASPIRIN 81 MG TAB.CHEW PO SCH (17:07)
[2019-04-21] MEDS ORDERED: risperiDONE 0.25 MG TABLET PO SCH (18:00)
--- NOTE | 2019-04-21 18:19 | NUR ---
RN MS CLOSING NOTES Patient remains on room air, no sob noted. Patient lying down comfortably on bed. All needs and medication given to patient. Right ac #20 remains open and unobstructed. 75 ML per hour. Lozano catheter is removed per Dr. Carroll's order. PT eval tomorrow am pending, methadone 40 mg BID now as well per MD's order. Will give report to NOC RN for DYLAN bedside.
--- NOTE | 2019-04-21 19:55 | NUR ---
RN INITIAL NOTES; RECEIVED REPORT FORM LAURENT RN. PT IN BED, SLEEPING, AROUSES TO TACTILE STIMULI, A/O X2 ON RA RESPIRATION EVEN AND UNLABORED. S/P BLANCHARD CATHETER REMOVAL, VOIDED IN DIAPER PER DAY RN REPORT. IV ACCESS PATENT AND FLUSHING WELL, INFUSING WITH NS AT 75ML/HR. ABDOMEN SOFT TOT TOUCH WITH ACTIVE BOWEL SOUND HEARD UPON AUSCULTATION. PT DENIES ANY PAIN OR DISCOMFORT UPON PALPATION OF ABDOMEN AND BLADDER AREA. BLE OFFLOADED. SAFETY PRECAUTIONS FOR FALL INITIATED, CALL LIGHT IN REACH, WILL CONTINUE MONITORING PT.
[2019-04-21 20:00] VITALS: BP 120/80
--- NOTE | 2019-04-21 20:30 | NUR ---
RN NOTES: ASSISTED PATHOLOGY TEACHER IN CHANGING PT'S DIAPER, DIAPER NOTED TO BE SOAKED WITH URINE
[2019-04-21] MEDS: CEFTRIAXONE 1 G in IV D5W 50 ML IV SCH (20:48)
[2019-04-21] MEDS: DOXYCYCLINE HYCLATE (100 MG) 100 MG TABLET PO SCH (20:49)
[2019-04-21] MEDS: ENOXAPARIN SODIUM 40 MG/0.4 ML DISP.SYRIN SQ SCH (21:38)
[2019-04-21 22:00] VITALS: BP 121/77
[2019-04-21] MEDS ORDERED: TRAZODONE 50 MG TABLET PO SCH (22:00)
--- NOTE | 2019-04-21 23:30 | NUR ---
rn notes: pt very sleepy, arouses to painful stimuli, unable to administer trazodone, made aware, currently in the unit
--- NOTE | 2019-04-22 00:30 | NUR ---
RN NOTES: TOOK PICTURES OF PT'S SKIN ISSUE, Z GUARD AND MEPILEX APPLIED ON SACRAL AREA, ALSO CHANGED PT'S DIAPER AT THIS TIME BECAUSE ITS WET WITH URINE
--- NOTE | 2019-04-22 02:00 | NUR ---
RN NOTES; ASSISTED INDUSTRIAL CUSTODIAN IN CHANGING PT'S DIAPER AT THIS TIME, DIAPER SOAKING WET WITH YELLOW COLORED URINE
--- NOTE | 2019-04-22 04:04 | NUR ---
RN NOTES: PERFORMED BLADDER SCAN POST VOID OBTAINED 15ML
--- NOTE | 2019-04-22 06:45 | NUR ---
RN CLOSING NOTES: PT IN BED, REMAINS A/O X 2-3 ON RA, RESPIRATION EVEN AND UNLABORED, IV ACCESS REMAINS PATENT AND FLUSHING WELL, INFUSING WITH NS AT 75ML/HR. BLE OFFLOADED. VS REMAINS STABLE, NEEDS ATTENDED, FOR PT TODAY . SAFETY PRECAUTIONS FOR FALL REMAINS ENGAGED, CALL LIGHT IN REACH, WILL ENDORSE TO DAY RN FOR CONTINUITY OF CARE.
--- NOTE | 2019-04-22 07:36 | NUR ---
MS RN OPENING NOTES PATIENT RESTING IN BED, AWAKE, ALERT, AND RESPONSIVE TO VERBAL STIMULI. PATIENT BREATHING ON ROOM AIR. PATIENT BREATHING IS EVEN AND UNLABORED. PATIENT IS IN NO ACUTE DISTRESS. NO SOB NOTED. PATIENT IV IS IN PLACE AND INTACT. BED ALARM IS ON. PATIENT BED IS LOCKED AND IN LOWEST POSITION. PATIENT CALL LIGHT IS WITHIN REACH. WILL CONTINUE TO MONITOR.
[2019-04-22 08:00] VITALS: BP 148/72
[2019-04-22] MEDS: METFORMIN 500 MG TABLET PO SCH ×2 (08:35→17:39)
[2019-04-22] MEDS: ARIPIPRAZOLE 5 MG TABLET PO SCH (08:35)
[2019-04-22] MEDS: BENAZEPRIL HCL 20 MG TABLET PO SCH (08:35)
[2019-04-22] MEDS: VENLAFAXINE XR 75 MG CAP.SR.24H PO SCH (08:38)
[2019-04-22] MEDS: METHADONE HCL 10 MG TABLET PO SCH ×2 (08:38→17:39)
[2019-04-22] MEDS: METOPROLOL SUCCINATE 50 MG TAB.SR.24H PO SCH (08:38)
[2019-04-22] MEDS: DOXYCYCLINE HYCLATE (100 MG) 100 MG TABLET PO SCH ×2 (08:39→20:22)
[2019-04-22 09:06] LABS: CALCIUM, SERUM 8.3 mg/dL (8.5-10.1); CREATININE 1.1 mg/dL (0.6-1.3); POTASSIUM 3.9 mmol/L (3.5-5.1)
[2019-04-22] MEDS: IV NS 0.9% 1,000 ML IV SCH (09:59)
--- NOTE | 2019-04-22 11:07 | NUR ---
WOUND CARE CONSULT: PT PRESENTS WITH VERY DRY SKIN ON LOWER LEGS WITH RESOLVING EDEMA AND FISSURE TO LEFT GREAT TOE WITH CALLUSES TO FEET AND VERY TENDER FEET. PT STATES IS FOLLOWED BY DR PRISCILA DPM. RECOMMENDATIONS MADE FOR SKIN PROTECTION AND CARE. DISCUSSED WITH NURSING STAFF. WILL SEE PRN. THAKUR IN AGREEMENT WITH PLAN OF CARE. CURRENT NAVEED SCORE IS 16. Addendum: 04/22/19 at 1108 by CHIN VASQUEZ Amended: Links added. Addendum: 04/22/19 at [address] FRANCOIS AWARE OF PT'S ADMISSION AND WILL SEE PT TODAY.
--- NOTE | 2019-04-22 13:00 | NUR ---
MS RN NOTES DR. FRANCOIS PERFORMED WOUND DEBRIDEMENT ON LEFT FOOT, BELOW BIG TOE. CONSENT HAD BEEN OBTAINED. WOUND SPECIMENS OBTAINED. PATIENT TOLERATED WELL. WILL CONTINUE TO MONITOR.
[2019-04-22] MEDS: MINERAL OIL/PETROLATUM,WHITE 120 GM JAR TP SCH (14:35)
[2019-04-22 16:00] VITALS: BP 129/77
[2019-04-22] MEDS: ATORVASTATIN 40 MG TABLET PO SCH (17:35)
[2019-04-22] MEDS: risperiDONE 1 MG TABLET PO SCH (17:36)
[2019-04-22] MEDS: ASPIRIN 81 MG TAB.CHEW PO SCH (17:36)
--- NOTE | 2019-04-22 19:44 | NUR ---
MS RN NOTES PATIENT IN BED RESTING NO SOB OR ACUTE DISTRESS NOTED. ALL DUE MEDICATIONS ADMINISTERED. ALL NEEDS MET. NO ACUTE CHANGES NOTED. ENDORSED CARE TO PM SHIFT.
--- NOTE | 2019-04-22 19:54 | NUR ---
RN INITIAL NOTES; RECEIVED REPORT FORM MERY. PT IN BED,AWAKE, EATING DINNER, A/O X2-3 ON RA RESPIRATION EVEN AND UNLABORED. S/P LEFT FOOT/TOE DEBRIDEMENT WITH DR FRANCOIS, DRESSING C/D/I, NO ACTIVE BLEEDING NOTED, BLE OFFLOADED ON PILLOWS. IV ACCESS PATENT AND FLUSHING WELL, INFUSING WITH NS AT 75ML/HR. PT DENIES ANY PAIN OR DISCOMFORT UPON PALPATION OF ABDOMEN AND BLADDER AREA. BLE OFFLOADED. SAFETY PRECAUTIONS FOR FALL INITIATED, CALL LIGHT IN REACH, WILL CONTINUE MONITORING PT.
[2019-04-22 20:00] VITALS: BP 143/78
--- NOTE | 2019-04-22 20:10 | NUR ---
RN NOTES: XRAY FOOT BEING DONE AT BED SIDE
[2019-04-22] MEDS: CEFTRIAXONE 1 G in IV D5W 50 ML IV SCH (20:22)
[2019-04-22] MEDS: TRAZODONE 50 MG TABLET PO SCH (21:03)
[2019-04-22] MEDS: ENOXAPARIN SODIUM 40 MG/0.4 ML DISP.SYRIN SQ SCH (21:04)
--- NOTE | 2019-04-22 22:00 | NUR ---
RN NOTES: PT REQUESTED FOR SNACK, APPLE JUICE AND CRACKERS, CONSUMED 100%
[2019-04-23] MEDS: IV NS 0.9% 1,000 ML IV SCH (00:24)
--- NOTE | 2019-04-23 06:43 | NUR ---
RN CLOSING NOTES: PT IN BED, REMAISN ON RA RESPIRATION EVEN AND UNLABORED. DENIES ANY PAIN OR DISCOMFORT AT THIS TIME. IV ACCESS REMAINS PATENT AND FLUSHING WELL, INFUSING WITH NS AT 75ML/HR. BLE REMAINS OFFLOADED ON PILLOWS. DRESSING ON LEFT FOOT REMAINS C/D/I, NO ACTIVE BLEEDING NOTED. AWAITING RESULT OF FOOT XRAY. VS REMAINS STABLE, NEEDS ATTENDED. SAFETY PRECAUTIONS FOR FALL INITIATED, CALL LIGHT IN REACH, WILL ENDORSE TO DAY RN FOR CONTINUITY OF CARE.
--- NOTE | 2019-04-23 07:43 | NUR ---
MS/RN - Assessment Patient is awake, A/O x 3, no complaints overnight, denies pain at this time, no apparent distress noted, afebrile, stable on room air. IVF NS at 75 ml/hr infusing well on the right hand with no signs of infiltration. Fall and aspiration precautions maintained. Plan of care discussed with patient and in agreement. Will continue with current medical management.
[2019-04-23 08:00] VITALS: BP 141/69
[2019-04-23] MEDS: BENAZEPRIL HCL 20 MG TABLET PO SCH (08:30)
[2019-04-23] MEDS: METHADONE HCL 10 MG TABLET PO SCH ×2 (08:31→16:14)
[2019-04-23] MEDS: VENLAFAXINE XR 75 MG CAP.SR.24H PO SCH (08:31)
[2019-04-23] MEDS: METOPROLOL SUCCINATE 50 MG TAB.SR.24H PO SCH (08:31)
[2019-04-23] MEDS: METFORMIN 500 MG TABLET PO SCH ×2 (08:31→16:29)
[2019-04-23] MEDS: ARIPIPRAZOLE 5 MG TABLET PO SCH (08:31)
[2019-04-23] MEDS: DOXYCYCLINE HYCLATE (100 MG) 100 MG TABLET PO SCH (08:31)
[2019-04-23] MEDS: MINERAL OIL/PETROLATUM,WHITE 120 GM JAR TP SCH (08:38)
[2019-04-23] MEDS: IV NS 0.9% 1,000 ML IV PRN (11:01)
--- NOTE | 2019-04-23 15:15 | NUR ---
MS/RN - s/b Dr. Weeks Seen and examined by Dr. Weeks.
[2019-04-23 16:00] VITALS: BP 141/76
[2019-04-23] MEDS: ATORVASTATIN 40 MG TABLET PO SCH (17:04)
[2019-04-23] MEDS: risperiDONE 1 MG TABLET PO SCH (17:04)
--- NOTE | 2019-04-23 17:15 | NUR ---
MS/RN - End of shift summary No significant change in condition seen, denies pain, no apparent distress. Continue IVF to maintain hydration and IV antibiotic was changed to Ancef for UTI. Patient updated on plan of care. Will continue with current medical management.
--- NOTE | 2019-04-23 19:30 | NUR ---
RN INITIAL NOTES; RECEIVED REPORT FROM ELSA WAGNER. PT IN BED,AWAKE, EATING DINNER, A/O X 3 ON RA RESPIRATION EVEN AND UNLABORED. IV ACCESS PATENT AND FLUSHING WELL, INFUSING WITH NS AT 75ML/HR. PT DENIES ANY PAIN OR DISCOMFORT AT THIS TIME. S/P LEFT FOOT/TOE DEBRIDEMENT 04/22, DRESSING C/D/I, NO ACTIVE BLEEDING NOTED, BLE OFFLOADED ON PILLOWS. SAFETY PRECAUTIONS FOR FALL INITIATED, CALL LIGHT IN REACH, WILL CONTINUE MONITORING PT.
[2019-04-23 19:45] VITALS: BP 139/91
[2019-04-23 20:00] VITALS: BP 139/91
[2019-04-23] MEDS: CEFAZOLIN 1 GM in IV D5W 50 ML IV SCH (20:39)
--- NOTE | 2019-04-23 20:48 | NUR ---
RN NOTES: JUNIOR EWING ASSISTED IN FEEDING THE PT
[2019-04-23] MEDS: ENOXAPARIN SODIUM 40 MG/0.4 ML DISP.SYRIN SQ SCH (21:14)
--- NOTE | 2019-04-23 21:35 | NUR ---
RN NOTES: PT REQUESTED FOR APPLE JUICE, CONSUMED 100%
[2019-04-23] MEDS: TRAZODONE 50 MG TABLET PO SCH (22:12)
[2019-04-24] MEDS: IV NS 0.9% 1,000 ML IV PRN ×2 (01:35→17:48)
[2019-04-24] MEDS: CEFAZOLIN 1 GM in IV D5W 50 ML IV SCH ×3 (04:15→20:51)
--- NOTE | 2019-04-24 06:35 | NUR ---
RN CLOSING NOTES: PT IN BED, REMAINS A/O X3, DENIES ANY PAIN OR DISCOMFORT AT THIS TIME. IV ACCESS REMAINS PATENT AND FLUSHING WELL, INFUSING WITH NS AT 75ML/HR. BLE OFFLOADED. VS REMAINS STABLE, NEEDS ATTENDED. SAFETY PRECAUTIONS FOR FALL REMAINS ENGAGED, CALL LIGHT IN REACH, WILL ENDORSE TO DAY RN FOR CONTINUITY OF CARE.
[2019-04-24 07:42] LABS: BASOPHILS # (AUTO) 0.1 /CMM (0.0-0.2); BASOPHILS % (AUTO) 0.7 % (0.0-2.0); EOSINOPHILS % (AUTO) 1.1 % (0.0-6.0); HEMATOCRIT 30 % (33-45); HEMOGLOBIN 9.8 g/dL (11.5-14.8); MEAN CORPUSCULAR HGB CONC 33 g/dl (31.0-36.0); MEAN CORPUSCULAR VOLUME 83 fL (82-100); MONOCYTES # (AUTO) 1.7 /CMM (0.1-1.30); MONOCYTES % (AUTO) 9.7 % (2.0-12.0); NEUTROPHILS # (AUTO) 13.9 /CMM (1.8-8.9); NEUTROPHILS % (AUTO) 77.5 % (43.0-81.0); PLATELET COUNT (AUTO) 421 /CMM (150-450); RED BLOOD CELL COUNT(AUTO) 3.58 MIL/uL (4.0-5.2); WHITE BLOOD COUNT (AUTO) 17.9 K/uL (4.3-11.0)
[2019-04-24 08:00] VITALS: BP 136/76
[2019-04-24] MEDS: METFORMIN 500 MG TABLET PO SCH ×2 (08:28→16:21)
[2019-04-24] MEDS: VENLAFAXINE XR 75 MG CAP.SR.24H PO SCH (08:28)
[2019-04-24] MEDS: ARIPIPRAZOLE 5 MG TABLET PO SCH (08:28)
[2019-04-24] MEDS: METHADONE HCL 10 MG TABLET PO SCH ×2 (08:28→16:21)
[2019-04-24] MEDS: BENAZEPRIL HCL 20 MG TABLET PO SCH (08:29)
[2019-04-24] MEDS: MINERAL OIL/PETROLATUM,WHITE 120 GM JAR TP SCH (08:30)
[2019-04-24] MEDS: METOPROLOL SUCCINATE 50 MG TAB.SR.24H PO SCH (08:30)
--- NOTE | 2019-04-24 11:00 | NUR ---
MS/RN - Notes Patient sleeping, no apparent distress, no s/s of pain. Will continue to monitor.
--- NOTE | 2019-04-24 15:15 | NUR ---
MS/RN - Notes Patient watching TV, denies pain, not in any form of distress. Will continue to monitor.
[2019-04-24 16:00] VITALS: BP 136/75
[2019-04-24] MEDS: risperiDONE 1 MG TABLET PO SCH (17:40)
[2019-04-24] MEDS: ATORVASTATIN 40 MG TABLET PO SCH (17:40)
--- NOTE | 2019-04-24 18:08 | NUR ---
MS/RN - End of shift summary No significant change in condition seen. Anticipate discharge tomorrow if remain stable. Will continue with current medical management.
[2019-04-24 19:56] VITALS: BP 147/83
[2019-04-24] MEDS: TRAZODONE 50 MG TABLET PO SCH (20:52)
[2019-04-24] MEDS: ENOXAPARIN SODIUM 40 MG/0.4 ML DISP.SYRIN SQ SCH (20:53)
[2019-04-25] MEDS: CEFAZOLIN 1 GM in IV D5W 50 ML IV SCH ×3 (05:24→19:01)
--- NOTE | 2019-04-25 07:52 | NUR ---
MS/RN - Assessment Patient is awake, A/O x 3, no complaints overnight, denies pain at this time, no apparent distress noted, afebrile, stable on room air. Saline lock on the right hand is patent, intact, with no signs of infiltration. Fall and aspiration precautions maintained. Plan of care discussed with patient and in agreement. Possible discharge today. Will continue with current medical management.
[2019-04-25 08:00] VITALS: BP 138/71
[2019-04-25] MEDS: ARIPIPRAZOLE 5 MG TABLET PO SCH (08:28)
[2019-04-25] MEDS: VENLAFAXINE XR 75 MG CAP.SR.24H PO SCH (08:28)
[2019-04-25] MEDS: BENAZEPRIL HCL 20 MG TABLET PO SCH (08:29)
[2019-04-25] MEDS: METOPROLOL SUCCINATE 50 MG TAB.SR.24H PO SCH (08:29)
[2019-04-25] MEDS: METFORMIN 500 MG TABLET PO SCH ×2 (08:29→16:59)
[2019-04-25] MEDS: MINERAL OIL/PETROLATUM,WHITE 120 GM JAR TP SCH (08:30)
[2019-04-25] MEDS: METHADONE HCL 10 MG TABLET PO SCH ×2 (08:30→17:00)
--- NOTE | 2019-04-25 11:30 | NUR ---
MS/RN - Notes Patient sleeping, no apparent distress, no s/s of pain. Will continue to monitor.
[2019-04-25 14:03] LABS: ALBUMIN 2.1 g/dL (3.4-5.0); BILIRUBIN,TOTAL 0.2 mg/dL (0.2-1.0); CALCIUM, SERUM 8.6 mg/dL (8.5-10.1); POTASSIUM 4.2 mmol/L (3.5-5.1); TOTAL PROTEIN, SERUM 6.5 g/dL (6.4-8.2)
--- NOTE | 2019-04-25 14:55 | NUR ---
MS/RN - Notes Patient watching TV, no apparent distress, denies pain. Plan for discharge today per Dr. Weeks. Will continue to monitor.
--- NOTE | 2019-04-25 15:35 | NUR ---
MS/RN - Discharge order Dr. Weeks with order to discharge patient to [facility]. Continue current medications as ordered and give Ancef dose prior to discharge. Will continue to care for patient at SNF.
[2019-04-25 16:00] VITALS: BP 150/84
[2019-04-25] MEDS: ATORVASTATIN 40 MG TABLET PO SCH (17:00)
[2019-04-25] MEDS: risperiDONE 1 MG TABLET PO SCH (17:00)
--- NOTE | 2019-04-25 18:00 | NUR ---
MS/RN - Report Called [facility] [phone], report given to BERNARD Townsend. Reviewed discharge instructions and made aware that we will administer Ancef dose prior to discharge. All questions answered to her satisfaction, pharmacy picking tech time by ambulance around 20:00.
--- NOTE | 2019-04-25 18:25 | NUR ---
MS/RN - End of shift summary Patient alert and oriented, denies pain, stable on room air, remain afebrile. Patient will be discharged tonight to [facility]. All discharge papers done and photos were taken on skin breakdown. Will endorse to night nurse accordingly.
--- NOTE | 2019-04-25 19:10 | NUR ---
rn opening notes pm patient in bed. bedside report recieved from alayna hodges. patient is getting [facility] with [facility] picker time at 8pm. ancef infusing. iv to be discontinued prior to dc. will cont to monitor.
--- NOTE | 2019-04-25 19:20 | NUR ---
ambulance delayed. ambulance company called and pickup time has been delayed to 2044.
--- NOTE | 2019-04-25 21:13 | NUR ---
ambulance arrived/ bp is high bp was found to be 158/83. state [facility] may not accept patient with an elevated bp. swati nurse at [facility] called and spoke to by charge nurse jose cruz state they will accept patient if we give a pain medication prior to transfer to [facility] patient relax and help bp.
--- NOTE | 2019-04-25 21:29 | NUR ---
discharged via ambulance. patient escorted off unit to [facility] via [facility] with [employer]. with two techs. patient on ra in no apparent distress. norco medication given prior to discharge .patient reports she has 6/10 general discomfort when being moved around.
== END 2019-04-25 21:25 | DRG 871 ==
LOC: ER 11:14 → TELE 15:01 → MED 04-21 10:04
PROVIDERS: ADMIT Internal Medicine; ATTEND Internal Medicine
PROC: 0JCR0ZZ Extirpation of Matter from Left Foot Subcutaneous Tissue and Fascia, Open Approach (ICD-10-PCS; principal; 2019-04-22)
DX: A41.9 Sepsis, unspecified organism (principal); N17.0 Acute kidney failure with tubular necrosis; I21.4 Non-ST elevation (NSTEMI) myocardial infarction; N39.0 Urinary tract infection, site not specified; F20.0 Paranoid schizophrenia; L97.429 Non-pressure chronic ulcer of left heel and midfoot with unspecified severity; J44.9 Chronic obstructive pulmonary disease, unspecified; E66.01 Morbid (severe) obesity due to excess calories; E78.5 Hyperlipidemia, unspecified; F17.210 Nicotine dependence, cigarettes, uncomplicated; I10 Essential (primary) hypertension; G89.29 Other chronic pain; I25.10 Atherosclerotic heart disease of native coronary artery without angina pectoris; Z68.35 Body mass index [BMI] 35.0-35.9, adult; Z79.84 Long term (current) use of oral hypoglycemic drugs; Z85.3 Personal history of malignant neoplasm of breast; Z90.81 Acquired absence of spleen; Z79.82 Long term (current) use of aspirin; Z90.13 Acquired absence of bilateral breasts and nipples; W45.8XXA Other foreign body or object entering through skin, initial encounter; Y93.9 Activity, unspecified; Y92.009 Unspecified place in unspecified non-institutional (private) residence as the place of occurrence of the external cause; B96.20 Unspecified Escherichia coli [E. coli] as the cause of diseases classified elsewhere; D63.8 Anemia in other chronic diseases classified elsewhere; E11.621 Type 2 diabetes mellitus with foot ulcer
CPT/HCPCS: 36415; 70450-TC; 71045-TC; 73630-TC; 80048-TC; 80053-TC; 80076-TC; 81000-TC; 82962-TC; 83605-TC; 84484-TC; 85025-TC; 85730-TC; 87070-TC; 87086-TC; 87186-TC; 93307-TC; 97110-TC; 97112-TC; 97530-TC; G0378; J0690; J0696; J1650; J3490; J7030; J7040; J7060

== ENCOUNTER 2020-01-15 05:55 | Day surgery (SDC) | payer MEDICARE, MEDICAID ==
[~2020-01-15 05:55] MED LIST changes: +ARIP10TA9 PO; -DEXL60CA3 PO; -DIVA250T PO; -METO25TA3 PO; -OXYB5TAB11 PO; +TRAZ150T75 PO
[2020-01-15] MEDS ORDERED: LIDOCAINE HCL/MPF 1% 30 ML VIAL IJ ONE (07:30)
[2020-01-15] MEDS ORDERED: BUPIVACAINE 0.5 % PF 150 MG/30 ML VIAL ONE (07:30)
[2020-01-15] MEDS ORDERED: FAMOTIDINE/PF INJ 20 MG/2 ML VIAL IV ONE (07:33)
[2020-01-15] MEDS ORDERED: FENTANYL PF 100MCG/2ML AMPUL ONE (07:54)
[2020-01-15] MEDS ORDERED: HYDROGEN PEROXIDE 480 ML BOTTLE ONE (08:29)
== END 2020-01-15 09:55 | disposition home or self-care (01) ==
LOC: DS 05:55
PROVIDERS: ATTEND Podiatrist
DX: M79.671 Pain in right foot (principal); E11.40 Type 2 diabetes mellitus with diabetic neuropathy, unspecified; K21.9 Gastro-esophageal reflux disease without esophagitis; I10 Essential (primary) hypertension; D64.9 Anemia, unspecified; Z79.899 Other long term (current) drug therapy
CPT/HCPCS: 14040; 28202; 82962 ×4; 88304; J3010; J3490; J7070; Q4186

== ENCOUNTER 2020-11-07 14:46 | Inpatient (IN) | payer MEDICARE, OTHER ==
[~2020-11-07] VITALS: Ht 170.2 cm; Wt 102.5 kg
[2020-11-07] MEDS: METFORMIN 500 MG TABLET PO SCH (00:43)
[2020-11-07] MEDS: DIVALPROEX SODIUM 250 MG TABLET.DR PO SCH (00:43)
[2020-11-07] MEDS: OXYBUTYNIN CHLORIDE 5 MG TABLET PO SCH (00:43)
[2020-11-07] MEDS ORDERED: ASPI-1420 PO (15:43)
[2020-11-07] MEDS ORDERED: OXYB5TAB16 PO (15:43)
[2020-11-07] MEDS ORDERED: AMLO-212 PO (15:43)
[2020-11-07] MEDS ORDERED: DEXL60CA3 PO (15:43)
[2020-11-07] MEDS ORDERED: METF-442 PO (15:43)
[2020-11-07] MEDS ORDERED: DIVA-76 PO (15:43)
[2020-11-07] MEDS ORDERED: METO100T14 PO (15:43)
[2020-11-07] MEDS ORDERED: IV NS 0.9% 500 ML BAG IV ONE (16:00)
--- NOTE | 2020-11-07 16:00 | NUR ---
[id number] HOME, PER REPORT, UNABLE TO GET UP S/P FALLING LAST NIGHT. BG 128. PATIENT ON GURNEY, A/OX3, BREATHING EVEN AND UNLABORED, NO SOB NOTED. IV LINE ESTABLISHED.
[2020-11-07 16:08] LABS: BASOPHILS # (AUTO) 0.1 /CMM (0.0-0.2); BASOPHILS % (AUTO) 0.3 % (0.0-2.0); HEMATOCRIT 34 % (33-45); HEMOGLOBIN 11.1 g/dL (11.5-14.8); LYMPHOCYTES # (AUTO) 1.5 /CMM (0.8-4.8); LYMPHOCYTES % (AUTO) 9.1 % (20.0-44.0); MEAN CORPUSCULAR HGB CONC 33 g/dl (31.0-36.0); MEAN CORPUSCULAR VOLUME 82 fL (82-100); MONOCYTES # (AUTO) 1.6 /CMM (0.1-1.30); MONOCYTES % (AUTO) 9.3 % (2.0-12.0); NEUTROPHILS # (AUTO) 13.8 /CMM (1.8-8.9); NEUTROPHILS % (AUTO) 81.3 % (43.0-81.0); PLATELET COUNT (AUTO) 484 /CMM (150-450); RED BLOOD CELL COUNT(AUTO) 4.19 MIL/uL (4.0-5.2)
[2020-11-07 16:44] LABS: ALANINE AMINOTRANSFERASE 16 U/L (12-78); ALBUMIN 3.3 g/dL (3.4-5.0); ALKALINE PHOSPHATASE 92 U/L (46-116); ASPARTATE AMINOTRANSFERASE 26 U/L (15-37); BILIRUBIN,DIRECT 0.2 mg/dL (0.0-0.2); BILIRUBIN,TOTAL 0.5 mg/dL (0.2-1.0); CARBON DIOXIDE 27 mmol/L (21-32); CHLORIDE 93 mmol/L (98-107); CREATININE 0.9 mg/dL (0.6-1.3); GLUCOSE 108 mg/dL (74-106); POTASSIUM 3.3 mmol/L (3.5-5.1); SODIUM SERUM 131 mmol/L (136-145); TOTAL PROTEIN, SERUM 7.5 g/dL (6.4-8.2); UREA NITROGEN, BLOOD 14 mg/dL (7-18)
--- NOTE | 2020-11-07 17:08 | NUR ---
LAB CALLED PT COVID RESULT NEGATIVE (-)
--- NOTE | 2020-11-07 18:37 | NUR ---
PATIENT RESTING, NO DISTRESS NOTED.
[2020-11-07] MEDS ORDERED: CEFTRIAXONE 1GM BAG (ER ONLY) 50 ML IV ONE ×2 (18:56→19:00)
[2020-11-07] MEDS ORDERED: POTASSIUM CHLORIDE 20 MEQ TAB.PRT.SR PO ONE ×2 (20:00→23:47)
[2020-11-07] MEDS ORDERED: ATORVASTATIN 40 MG TABLET PO SCH (20:00)
[2020-11-07] MEDS ORDERED: ONDANSETRON HCL/PF 4 MG/2 ML VIAL IVP PRN (20:00)
[2020-11-07] MEDS ORDERED: MAGNESIUM HYDROXIDE 30 ML UDC PO PRN (20:00)
[2020-11-07] MEDS ORDERED: ZOLPIDEM TARTRATE 5 MG TABLET PO PRN (20:00)
[2020-11-07] MEDS ORDERED: MAG HYDROX/AL HYDROX/SIMETH 30 ML UDC PO PRN (20:00)
[2020-11-07] MEDS ORDERED: TRAZODONE 50 MG TABLET PO PRN (20:00)
[2020-11-07] MEDS ORDERED: risperiDONE 0.25 MG TABLET PO SCH (20:00)
[2020-11-07] MEDS ORDERED: ACETAMINOPHEN 325 MG TABLET PO PRN (20:00)
[2020-11-07] MEDS ORDERED: Z GUARD REMEDY 2 OZ OINT TP PRN (20:00)
[2020-11-07] MEDS ORDERED: ENOXAPARIN SODIUM 40 MG/0.4 ML DISP.SYRIN SQ SCH (21:00)
--- NOTE | 2020-11-07 21:37 | NUR ---
PT NOTED SAT 91% ROOM AIR, PLACED ON 2L NC NOW SAT 99%.
[2020-11-07] MEDS ORDERED: VANCOMYCIN 1.25 GM in IV D5W 250 ML IV ONE (23:30)
[2020-11-07] MEDS ORDERED: VANCOMYCIN 1 GM VIAL ONE (23:43)
[2020-11-07] MEDS ORDERED: OXYBUTYNIN CHLORIDE 5 MG TABLET ONE (23:44)
[2020-11-07] MEDS ORDERED: DIVALPROEX SODIUM 250 MG TABLET.DR PO ONE (23:44)
[2020-11-07] MEDS ORDERED: ATORVASTATIN 40 MG TABLET ONE (23:44)
[2020-11-07] MEDS ORDERED: ENOXAPARIN SODIUM 60 MG/0.6 ML DISP.SYRIN SQ ONE (23:46)
[2020-11-07] MEDS ORDERED: risperiDONE 1 MG TABLET ONE (23:47)
[2020-11-08] MEDS ORDERED: METFORMIN 500 MG TABLET ONE (00:16)
[2020-11-08] MEDS ORDERED: VANCOMYCIN 500 MG VIAL ONE (00:18)
--- NOTE | 2020-11-08 05:40 | NUR ---
PATIENT URINATED W/ USE OF STRAIGHT CATHETER, 1200ML OF URINE
--- NOTE | 2020-11-08 07:49 | NUR ---
BREAKFAST TRAY PROVIDED. TOLERATED PO WELL. ATE 80% OF BREAKFAST
[2020-11-08 07:54] LABS: BASOPHILS # (AUTO) 0.1 /CMM (0.0-0.2); BASOPHILS % (AUTO) 0.6 % (0.0-2.0); EOSINOPHILS % (AUTO) 0.6 % (0.0-6.0); HEMATOCRIT 29 % (33-45); HEMOGLOBIN 9.5 g/dL (11.5-14.8); LYMPHOCYTES # (AUTO) 2.1 /CMM (0.8-4.8); LYMPHOCYTES % (AUTO) 15.5 % (20.0-44.0); MEAN CORPUSCULAR HGB CONC 33 g/dl (31.0-36.0); MEAN CORPUSCULAR VOLUME 81 fL (82-100); MONOCYTES # (AUTO) 1.4 /CMM (0.1-1.30); MONOCYTES % (AUTO) 10.3 % (2.0-12.0); NEUTROPHILS # (AUTO) 9.9 /CMM (1.8-8.9); PLATELET COUNT (AUTO) 411 /CMM (150-450); RED BLOOD CELL COUNT(AUTO) 3.61 MIL/uL (4.0-5.2); WHITE BLOOD COUNT (AUTO) 13.5 K/uL (4.3-11.0)
[2020-11-08 08:18] LABS: CALCIUM, SERUM 8.6 mg/dL (8.5-10.1); CREATININE 0.7 mg/dL (0.6-1.3); MAGNESIUM 1.6 mg/dL (1.8-2.4); PHOSPHORUS 3.2 mg/dL (2.5-4.9); POTASSIUM 3.9 mmol/L (3.5-5.1)
[2020-11-08] MEDS: OXYBUTYNIN CHLORIDE 5 MG TABLET PO SCH ×3 (08:59→17:48)
[2020-11-08] MEDS: DIVALPROEX SODIUM 250 MG TABLET.DR PO SCH ×2 (08:59→17:48)
[2020-11-08] MEDS ORDERED: ASPIRIN EC 81 MG TABLET.DR PO SCH (09:00)
[2020-11-08] MEDS ORDERED: PANTOPRAZOLE 40 MG TABLET.DR PO SCH (09:00)
[2020-11-08] MEDS: VENLAFAXINE XR 75 MG CAP.SR.24H PO SCH (09:00)
[2020-11-08] MEDS ORDERED: AMLODIPINE BESYLATE 5 MG TABLET PO SCH (09:00)
[2020-11-08] MEDS ORDERED: METOPROLOL TARTRATE 50 MG TABLET PO SCH (09:00)
[2020-11-08] MEDS ORDERED: BENAZEPRIL HCL 20 MG TABLET PO SCH (09:00)
[2020-11-08] MEDS ORDERED: METFORMIN XR 500 MG TAB.SR.24H PO ONE (09:13)
[2020-11-08] MEDS ORDERED: METOPROLOL TARTRATE 50 MG TABLET ONE (09:13)
[2020-11-08] MEDS ORDERED: AMLODIPINE BESYLATE 5 MG TABLET ONE (09:13)
[2020-11-08] MEDS ORDERED: BENAZEPRIL HCL 10 MG TABLET ONE (09:13)
--- NOTE | 2020-11-08 09:45 | NUR ---
SISTER HUMZA CALLED. PATIENT A/OX4, BREATHING EVEN AND UNLABORED, NO SOB NOTED, NEEDS ATTENDED.
[2020-11-08] MEDS ORDERED: TRAZODONE 50 MG TABLET PO PRN (10:00)
[2020-11-08] MEDS: METFORMIN 500 MG TABLET PO SCH ×2 (10:00→18:15)
--- NOTE | 2020-11-08 10:22 | NUR ---
PHYSICAL THERAPIST AT BEDSIDE
[2020-11-08] MEDS ORDERED: Magnesium 1GM/D5W 100ML PREMIX 200 ML IV ONE (10:53)
[2020-11-08] MEDS: Magnesium 1GM/D5W 100ML PREMIX 100 ML IV SCH ×2 (11:00→12:06)
[2020-11-08] MEDS ORDERED: ENOXAPARIN SODIUM 100 MG/ML DISP.SYRIN SQ ONE ×2 (11:11→21:43)
[2020-11-08] MEDS: ENOXAPARIN SODIUM 100 MG/ML DISP.SYRIN SQ SCH ×2 (11:31→21:48)
--- NOTE | 2020-11-08 12:39 | NUR ---
LUNCH TRAY PROVIDED. TOLERATED PO WELL. ATE 70% OF LUNCH
--- NOTE | 2020-11-08 17:16 | NUR ---
DINNER TRAY PROVIDED. TOLERATED PO WELL. ATE 80% OF DINNER
[2020-11-08] MEDS ORDERED: DIVALPROEX SODIUM 250 MG TABLET.DR PO ONE (17:40)
[2020-11-08] MEDS ORDERED: risperiDONE 1 MG TABLET ONE (17:41)
[2020-11-08] MEDS ORDERED: OXYBUTYNIN CHLORIDE 5 MG TABLET ONE (17:41)
[2020-11-08] MEDS: ATORVASTATIN 40 MG TABLET PO SCH (18:15)
[2020-11-08] MEDS: risperiDONE 1 MG TABLET PO SCH (18:15)
[2020-11-08] MEDS: VANCOMYCIN 1.25 GM in IV D5W 250 ML IV SCH (18:56)
[2020-11-08] MEDS ORDERED: HYDROCODONE/APAP 5/325MG TABLET ONE ×2 (19:10→23:37)
[2020-11-08] MEDS: HYDROCODONE/APAP 5/325MG TABLET PO PRN ×2 (19:13→23:33)
--- NOTE | 2020-11-08 19:39 | NUR ---
ENDORSEMENT GIVEN TO SHERIDAN WAGNER FOR DYLAN
[2020-11-08] MEDS ORDERED: ENOXAPARIN SODIUM 40 MG/0.4 ML DISP.SYRIN SQ SCH (21:00)
[2020-11-08] MEDS: CEFTRIAXONE 1 G in IV D5W 50 ML IV SCH (21:23)
--- NOTE | 2020-11-08 21:49 | NUR ---
PATIENT IS AWAKE. WATCHING TELEVISION. PATIENT STATES THAT SHE FEELS SORE, BUT BETTER THAN BEFORE. PATIENT IS BREATHING EVENLY AND UNLABORED ON 2L OF NASAL CANNULA. PATIENT IS CONNECTED TO THE [employer]SULTANT FOR FURTHER MONITORING. PATIENT'S BED IS AT THE LOWEST POSITION. SIDE RAILS ARE UP FOR SAFETY. CALL LIGHT IS WITHIN REACH.
--- NOTE | 2020-11-08 23:29 | NUR ---
PATIENT IS C/O OF LEFT LEG PAIN. WILL FOLLOW PAIN MEDICATION PRN ORDER.
[2020-11-09 05:25] LABS: BASOPHILS # (AUTO) 0.1 /CMM (0.0-0.2); EOSINOPHILS % (AUTO) 2.9 % (0.0-6.0); HEMATOCRIT 31 % (33-45); HEMOGLOBIN 9.7 g/dL (11.5-14.8); LYMPHOCYTES # (AUTO) 2.9 /CMM (0.8-4.8); LYMPHOCYTES % (AUTO) 20.7 % (20.0-44.0); MEAN CORPUSCULAR HGB CONC 32 g/dl (31.0-36.0); MEAN CORPUSCULAR VOLUME 83 fL (82-100); MONOCYTES # (AUTO) 1.3 /CMM (0.1-1.30); MONOCYTES % (AUTO) 9.3 % (2.0-12.0); NEUTROPHILS # (AUTO) 9.1 /CMM (1.8-8.9); NEUTROPHILS % (AUTO) 66.1 % (43.0-81.0); PLATELET COUNT (AUTO) 425 /CMM (150-450); RED BLOOD CELL COUNT(AUTO) 3.72 MIL/uL (4.0-5.2); WHITE BLOOD COUNT (AUTO) 13.8 K/uL (4.3-11.0)
[2020-11-09 05:44] LABS: CALCIUM, SERUM 8.6 mg/dL (8.5-10.1); CREATININE 0.6 mg/dL (0.6-1.3); MAGNESIUM 1.8 mg/dL (1.8-2.4); PHOSPHORUS 3.1 mg/dL (2.5-4.9); POTASSIUM 4.2 mmol/L (3.5-5.1)
[2020-11-09] MEDS ORDERED: HYDROCODONE/APAP 5/325MG TABLET ONE ×3 (07:21→19:22)
[2020-11-09] MEDS: HYDROCODONE/APAP 5/325MG TABLET PO PRN ×3 (07:22→19:23)
--- NOTE | 2020-11-09 07:33 | NUR ---
REPORT GIVEN TO OKSANA WAGNER FOR DYLAN.
[2020-11-09] MEDS: METFORMIN 500 MG TABLET PO SCH ×2 (08:20→17:01)
[2020-11-09] MEDS: VENLAFAXINE XR 75 MG CAP.SR.24H PO SCH (08:22)
[2020-11-09] MEDS ORDERED: BENAZEPRIL HCL 10 MG TABLET ONE (09:06)
[2020-11-09] MEDS ORDERED: ASPIRIN EC 81 MG TABLET.DR PO ONE (09:06)
[2020-11-09] MEDS ORDERED: ENOXAPARIN SODIUM 100 MG/ML DISP.SYRIN SQ ONE (09:06)
[2020-11-09] MEDS ORDERED: AMLODIPINE BESYLATE 5 MG TABLET ONE (09:06)
[2020-11-09] MEDS ORDERED: DIVALPROEX SODIUM 250 MG TABLET.DR PO ONE ×2 (09:06→16:33)
[2020-11-09] MEDS ORDERED: OXYBUTYNIN CHLORIDE 5 MG TABLET ONE ×2 (09:07→16:34)
[2020-11-09] MEDS ORDERED: METOPROLOL TARTRATE 50 MG TABLET ONE (09:07)
[2020-11-09] MEDS ORDERED: PANTOPRAZOLE 40 MG TABLET.DR PO ONE (09:07)
[2020-11-09] MEDS: BENAZEPRIL HCL 10 MG TABLET PO SCH (09:23)
[2020-11-09] MEDS: PANTOPRAZOLE 40 MG TABLET.DR PO SCH (09:23)
[2020-11-09] MEDS: METOPROLOL TARTRATE 50 MG TABLET PO SCH (09:23)
[2020-11-09] MEDS: AMLODIPINE BESYLATE 5 MG TABLET PO SCH (09:23)
[2020-11-09] MEDS: DIVALPROEX SODIUM 250 MG TABLET.DR PO SCH ×2 (09:23→17:01)
[2020-11-09] MEDS: ASPIRIN EC 81 MG TABLET.DR PO SCH (09:23)
[2020-11-09] MEDS: OXYBUTYNIN CHLORIDE 5 MG TABLET PO SCH ×3 (09:23→17:01)
[2020-11-09] MEDS: ENOXAPARIN SODIUM 100 MG/ML DISP.SYRIN SQ SCH ×2 (09:24→20:25)
--- NOTE | 2020-11-09 10:00 | NUR ---
adl care provided. kept pt clean and dry and comfortable.
--- NOTE | 2020-11-09 10:40 | NUR ---
WOUND CARE CONSULT: PT PRESENTS WITH REDNESS, EDEMA AND WARMTH TO BILATERAL LOWER LEGS WITH RAISED AREA TO RT ANTERIOR LOWER LEG, PRESENT ON ADMISSION. RECOMMEND DPM CONSULT. DR LEON NOTIFIED OF CONSULT REQUEST. IN AGREEMENT WITH PLAN OF CARE. DISCUSSED SKIN PROTECTION WITH NURSING STAFF. Addendum: 11/09/20 at 1041 by CHIN LYNN WNDNU Amended: Links added.
[2020-11-09] MEDS: VANCOMYCIN 1.25 GM in IV D5W 250 ML IV SCH (12:49)
[2020-11-09] MEDS: IV NS 0.9% 1,000 ML IV PRN (14:33)
--- NOTE | 2020-11-09 16:30 | NUR ---
seen by andrea lala podiatry
[2020-11-09] MEDS ORDERED: ATORVASTATIN 40 MG TABLET ONE (16:33)
[2020-11-09] MEDS ORDERED: METFORMIN XR 500 MG TAB.SR.24H PO ONE (16:34)
[2020-11-09] MEDS ORDERED: risperiDONE 1 MG TABLET ONE (16:34)
[2020-11-09] MEDS: risperiDONE 1 MG TABLET PO SCH (17:01)
[2020-11-09] MEDS: ATORVASTATIN 40 MG TABLET PO SCH (17:01)
--- NOTE | 2020-11-09 19:20 | NUR ---
REC'D PT IN BED SLEEPING. AROUSES EASILY. BREATHING EVENLY. ON O2 AT 2LPM VIA NC. EVI WELL NO SOB. NAD. SKIN WARM AND DRY. NO S.S OR C/O PAIN OR DISCOMFORT. WILL CONT TO MONITOR ,
[2020-11-09] MEDS ORDERED: ENOXAPARIN SODIUM 60 MG/0.6 ML DISP.SYRIN SQ ONE (20:16)
[2020-11-09] MEDS ORDERED: ENOXAPARIN SODIUM 30 MG/0.3 ML DISP.SYRIN ONE (20:16)
[2020-11-09] MEDS: CEFTRIAXONE 1 G in IV D5W 50 ML IV SCH (20:25)
[2020-11-10] MEDS ORDERED: HYDROCODONE/APAP 5/325MG TABLET ONE ×2 (01:32→09:41)
[2020-11-10] MEDS: HYDROCODONE/APAP 5/325MG TABLET PO PRN ×2 (01:33→09:46)
[2020-11-10] MEDS ORDERED: ZOLPIDEM TARTRATE 5 MG TABLET ONE (01:45)
--- NOTE | 2020-11-10 01:54 | NUR ---
ramy given as ordered per pt's request for c/o insomnia
[2020-11-10 05:17] LABS: CALCIUM, SERUM 8.5 mg/dL (8.5-10.1); CREATININE 0.7 mg/dL (0.6-1.3)
[2020-11-10] MEDS: VANCOMYCIN 1.25 GM in IV D5W 250 ML IV SCH (06:30)
[2020-11-10] MEDS: METFORMIN 500 MG TABLET PO SCH ×2 (09:00→19:33)
[2020-11-10] MEDS ORDERED: ENOXAPARIN SODIUM 40 MG/0.4 ML DISP.SYRIN SQ ONE (09:41)
[2020-11-10] MEDS ORDERED: OXYBUTYNIN CHLORIDE 5 MG TABLET ONE ×3 (09:42→19:32)
[2020-11-10] MEDS ORDERED: DIVALPROEX SODIUM 250 MG TABLET.DR PO ONE ×2 (09:42→19:32)
[2020-11-10] MEDS ORDERED: AMLODIPINE BESYLATE 5 MG TABLET ONE (09:42)
[2020-11-10] MEDS ORDERED: PANTOPRAZOLE 40 MG TABLET.DR PO ONE (09:42)
[2020-11-10] MEDS ORDERED: METOPROLOL TARTRATE 50 MG TABLET ONE (09:43)
[2020-11-10] MEDS ORDERED: ASPIRIN 81 MG TAB.CHEW ONE (09:43)
[2020-11-10] MEDS: METOPROLOL TARTRATE 50 MG TABLET PO SCH (09:46)
[2020-11-10] MEDS: BENAZEPRIL HCL 10 MG TABLET PO SCH (09:46)
[2020-11-10] MEDS: OXYBUTYNIN CHLORIDE 5 MG TABLET PO SCH ×3 (09:46→19:33)
[2020-11-10] MEDS: VENLAFAXINE XR 75 MG CAP.SR.24H PO SCH (09:46)
[2020-11-10] MEDS: ASPIRIN EC 81 MG TABLET.DR PO SCH (09:46)
[2020-11-10] MEDS: DIVALPROEX SODIUM 250 MG TABLET.DR PO SCH ×2 (09:46→19:33)
[2020-11-10] MEDS: PANTOPRAZOLE 40 MG TABLET.DR PO SCH (09:47)
[2020-11-10] MEDS: AMLODIPINE BESYLATE 5 MG TABLET PO SCH (09:47)
[2020-11-10] MEDS: ENOXAPARIN SODIUM 100 MG/ML DISP.SYRIN SQ SCH (09:48)
--- NOTE | 2020-11-10 11:23 | NUR ---
PT IS GOING TO HAVE AN MRI OF LOWER LEG. PT VERBALIZED THAT SHE IS CLAUSTROPHOBIC. MADE AWARE. OBTAINED ORDER FOR XANAX 0.5MG PO X 1 DOSE PRIOT TO MRI. ORDER NOTED AND CARRIED OUT
[2020-11-10] MEDS ORDERED: ALPRAZOLAM 0.5 MG TABLET ONE (11:25)
[2020-11-10] MEDS ORDERED: ALPRAZOLAM 0.25 MG TABLET PO ONE (11:30)
--- NOTE | 2020-11-10 12:30 | NUR ---
pt to mri
--- NOTE | 2020-11-10 13:10 | NUR ---
pt back from MRI. pt refused to have her MRI done ad per chemical engineering technician
--- NOTE | 2020-11-10 13:15 | NUR ---
PATIENT BACK TO ER BED 12 FROM MRI
--- NOTE | 2020-11-10 16:12 | NUR ---
pt care rendered. alexandro care done. pt is clean and dry.
--- NOTE | 2020-11-10 19:30 | NUR ---
REC'D PT IN BED, AAOX4, DENIES SOB/CP. PT HERE FOR WEAKNESS, PT FROM HOME, UNABLE TO AMBUALATE PER REPORT. NOT IN ACUTE DISTRESS AT THIS TIME, PENDING ER PROVIDER NIKITA
[2020-11-10] MEDS ORDERED: ATORVASTATIN 40 MG TABLET ONE (19:32)
[2020-11-10] MEDS: risperiDONE 1 MG TABLET PO SCH (19:33)
[2020-11-10] MEDS ORDERED: risperiDONE 1 MG TABLET ONE (19:33)
[2020-11-10] MEDS: ATORVASTATIN 40 MG TABLET PO SCH (19:33)
--- NOTE | 2020-11-10 19:40 | NUR ---
PT ENDORSED TO BERNARD GEE
[2020-11-10] MEDS: CEFTRIAXONE 1 G in IV D5W 50 ML IV SCH (21:12)
--- NOTE | 2020-11-11 00:42 | NUR ---
FAXED TO NURSING SUP ORDER FOR METHADONE, NOT AVAILABLE IN NIGHT LOCKER
[2020-11-11] MEDS ORDERED: HYDROCODONE/APAP 5/325MG TABLET ONE (00:47)
[2020-11-11] MEDS: HYDROCODONE/APAP 5/325MG TABLET PO PRN (00:51)
[2020-11-11] MEDS: VANCOMYCIN 1.25 GM in IV D5W 250 ML IV SCH ×2 (01:00→17:16)
--- NOTE | 2020-11-11 05:26 | NUR ---
M/S 320-2
[2020-11-11 06:10] LABS: BASOPHILS # (AUTO) 0.2 /CMM (0.0-0.2); BASOPHILS % (AUTO) 1.4 % (0.0-2.0); CALCIUM, SERUM 8.5 mg/dL (8.5-10.1); CREATININE 0.7 mg/dL (0.6-1.3); EOSINOPHILS % (AUTO) 4.4 % (0.0-6.0); HEMATOCRIT 29 % (33-45); HEMOGLOBIN 9.5 g/dL (11.5-14.8); LYMPHOCYTES # (AUTO) 3.2 /CMM (0.8-4.8); MEAN CORPUSCULAR HGB CONC 33 g/dl (31.0-36.0); MEAN CORPUSCULAR VOLUME 81 fL (82-100); MONOCYTES # (AUTO) 1.3 /CMM (0.1-1.30); MONOCYTES % (AUTO) 10.8 % (2.0-12.0); NEUTROPHILS # (AUTO) 6.8 /CMM (1.8-8.9); NEUTROPHILS % (AUTO) 56.4 % (43.0-81.0); PLATELET COUNT (AUTO) 465 /CMM (150-450); POTASSIUM 3.8 mmol/L (3.5-5.1); RED BLOOD CELL COUNT(AUTO) 3.58 MIL/uL (4.0-5.2)
--- NOTE | 2020-11-11 06:48 | NUR ---
REPORT GIVEN TO CHARGE NURSE BERNARD LEMUS FOR DYLAN, PT WILL BE TRANSPORTED TO 3RD FLOOR
[2020-11-11 08:00] VITALS: BP 156/74
[2020-11-11] MEDS: METFORMIN 500 MG TABLET PO SCH ×2 (08:28→17:17)
[2020-11-11] MEDS: AMLODIPINE BESYLATE 5 MG TABLET PO SCH (08:28)
[2020-11-11] MEDS: ASPIRIN EC 81 MG TABLET.DR PO SCH (08:28)
[2020-11-11] MEDS: VENLAFAXINE XR 75 MG CAP.SR.24H PO SCH (08:28)
[2020-11-11] MEDS: METOPROLOL TARTRATE 50 MG TABLET PO SCH (08:29)
[2020-11-11] MEDS: PANTOPRAZOLE 40 MG TABLET.DR PO SCH (08:32)
[2020-11-11] MEDS: METHADONE HCL 10 MG TABLET PO SCH ×3 (08:33→21:53)
[2020-11-11] MEDS: BENAZEPRIL HCL 10 MG TABLET PO SCH (08:33)
[2020-11-11] MEDS: OXYBUTYNIN CHLORIDE 5 MG TABLET PO SCH ×3 (08:33→16:29)
[2020-11-11] MEDS: DIVALPROEX SODIUM 250 MG TABLET.DR PO SCH ×2 (08:34→16:30)
[2020-11-11] MEDS ORDERED: ENOXAPARIN SODIUM 40 MG/0.4 ML DISP.SYRIN SQ SCH (09:00)
--- NOTE | 2020-11-11 09:26 | NUR ---
WOUND CARE: PT CONTINUES TO HAVE RAISED DISCOLORED TENDER AREA TO RT ANTERIOR LOWER LEG, PRESENT ON ADMISSION. NO DRAINAGE NOTED. RECOMMEND DPM FOLLOW UP. ALL SKIN PROTECTION RECOMMENDATIONS DISCUSSED WITH NURSING STAFF. WILL SEE PRNDev THAKUR IN AGREEMENT WITH PLAN OF CARE.
[2020-11-11] MEDS: IV NS 0.9% 1,000 ML IV PRN (11:06)
[2020-11-11] MEDS ORDERED: LORAZEPAM 0.5 MG TABLET PO ONE (14:30)
[2020-11-11 16:00] VITALS: BP 156/88
[2020-11-11] MEDS: APIXABAN 5 MG TABLET PO SCH (16:32)
[2020-11-11] MEDS: risperiDONE 1 MG TABLET PO SCH (17:17)
[2020-11-11] MEDS: ATORVASTATIN 40 MG TABLET PO SCH (17:17)
--- NOTE | 2020-11-11 19:07 | NUR ---
MS/RN - Shift report Patient is A/O X 4, calm and cooperative with care, denies pain, stable on room air, afebrile. Patient here for RLE cellulitis vs abscess, MRI RLE w/o contrast was done today, results pending. BLE with lymphedema, elevated on pillows, wound nurse deferred to DPM. All needs attended. Will continue with current medical management.
--- NOTE | 2020-11-11 19:31 | NUR ---
MS RN NOTES PATIENT IN BED, AWAKE, ALERT AND ORIENTED X 4. BREATHING EVEN AND UNLABORED ON ROOM AIR. SHOWS NO SIGNS OF ACUTE RESPIRATORY DISTRESS, NO ACUTE PAIN. IV ON L HAND 22G SL AND LAC 20G . SHOWS NO SIGNS OF INFILTRATION, NO REDNESS. SAFETY PRECAUTIONS IN PLACE. BED IN LOWEST POSITION, LOCKED, AND CALL LIGHT KEPT WITHIN REACH.
[2020-11-11 20:00] VITALS: BP 131/84
[2020-11-11 20:31] VITALS: BP 131/84
[2020-11-11] MEDS: CEFTRIAXONE 1 G in IV D5W 50 ML IV SCH (21:52)
[2020-11-12 07:02] LABS: CALCIUM, SERUM 8.4 mg/dL (8.5-10.1); CREATININE 0.8 mg/dL (0.6-1.3); POTASSIUM 3.9 mmol/L (3.5-5.1)
--- NOTE | 2020-11-12 08:00 | NUR ---
MS RN NOTES ENDORSED TO AM NURSE. PT IN BED, RESTING COMFORTABLE. NO ACUTE EVENTS OVERNIGHT.
[2020-11-12 08:41] VITALS: BP 157/86
[2020-11-12] MEDS: APIXABAN 5 MG TABLET PO SCH ×2 (09:00→17:08)
[2020-11-12] MEDS: VENLAFAXINE XR 75 MG CAP.SR.24H PO SCH (09:57)
[2020-11-12] MEDS: PANTOPRAZOLE 40 MG TABLET.DR PO SCH (09:57)
[2020-11-12] MEDS: OXYBUTYNIN CHLORIDE 5 MG TABLET PO SCH ×3 (09:57→17:08)
[2020-11-12] MEDS: BENAZEPRIL HCL 10 MG TABLET PO SCH (09:58)
[2020-11-12] MEDS: METHADONE HCL 10 MG TABLET PO SCH ×2 (09:58→20:36)
[2020-11-12] MEDS: AMLODIPINE BESYLATE 5 MG TABLET PO SCH (09:58)
[2020-11-12] MEDS: DIVALPROEX SODIUM 250 MG TABLET.DR PO SCH ×2 (09:59→17:07)
[2020-11-12] MEDS: METOPROLOL TARTRATE 50 MG TABLET PO SCH (09:59)
[2020-11-12] MEDS: ASPIRIN EC 81 MG TABLET.DR PO SCH (09:59)
--- NOTE | 2020-11-12 10:10 | NUR ---
SW consult was requested the previous day for providing an advanced directed and the consult was handed off to this commercial underwriter. PALOMA met with the pt at bedside. Pt appears to be alert and oriented x4 (time, place, self and situation). Pt appears to be disheveled and inappropriately dressed. Pt appears to be in distressed state and presents with a euthymic mood. Pt states that she wanted to be informed about advanced directives. PALOMA provided the pt with the form and explained the form to the pt. PALOMA then provided the pt with the number for a notary.
[2020-11-12] MEDS: METFORMIN 500 MG TABLET PO SCH ×2 (11:36→17:07)
--- NOTE | 2020-11-12 13:02 | NUR ---
MS/RN Nurse change Patient received from outgoing nurse Stephanie at 1300.
[2020-11-12] MEDS: VANCOMYCIN 1.25 GM in IV D5W 250 ML IV SCH (13:09)
[2020-11-12] MEDS ORDERED: LIDOCAINE HCL/PF 1% 30 ML SDV IJ ONE (15:00)
--- NOTE | 2020-11-12 15:00 | NUR ---
MS/[employer] police launch commander Seen by Dr East - s/p right lower leg hematoma aspiration.
[2020-11-12 16:00] VITALS: BP 164/88
[2020-11-12 17:00] VITALS: BP 144/78
[2020-11-12] MEDS: ATORVASTATIN 40 MG TABLET PO SCH (17:08)
[2020-11-12] MEDS: risperiDONE 1 MG TABLET PO SCH (17:08)
--- NOTE | 2020-11-12 18:22 | NUR ---
MS/RN End note Patient remains in stable condition, will endorse to covered button maker.
--- NOTE | 2020-11-12 19:05 | NUR ---
rn ms notes received patient in bed awake alert and oriented x 4 able to make needs known, respirations even and unlabored with equal rise and fall of chest, denies any pain new iv site inserted to left fa #22 g intact and patent, safety precautions rendered discussed plan of care, all needs attended at this time will continue to monitor.
[2020-11-12 20:00] VITALS: BP_SYST 156; BP_DIAS 82; BP_DIAS 85
[2020-11-12] MEDS: CEFTRIAXONE 1 G in IV D5W 50 ML IV SCH (20:37)
[2020-11-13] MEDS: VANCOMYCIN 1.25 GM in IV D5W 250 ML IV SCH ×2 (05:11→23:35)
--- NOTE | 2020-11-13 07:15 | NUR ---
rn ms closing notes patient in bed awake alert and oriented x 4 able to make needs known, respirations even and unlabored with equal rise and fall of chest, denies any pain , iv site inserted to left fa #22 g intact and patent, safety precautions rendered, all needs attended at this time will continue to monitor and endorse to next shift. both heels and lower ext offloaded, perineal care provided sacral intact, fluids offered, remains comfortable.
--- NOTE | 2020-11-13 07:29 | NUR ---
MS RN OPENING NOTES RECEIVED PT RESTING IN BED AWAKE A/OX4 ON RA BREATHING EVEN AND UNLABORED, NO ACUTE RESPIRATORY DISTRESS NOTED. NO C/O PAIN OR DISCOMFORT AT THIS TIME. IV TO LFA #22G PATENT AND INTACT INFUSING NS @50 ML HR/ BED AT LOWEST AND LOCKED POSITION WITH SIDE RAILS UPX2 AND CALL LIGHT WITH IN REACH. ALL SAFETY MEASURE IN PLACE. WILL CONITNUE TO MONITOR THROUGH SHIFT.
[2020-11-13 07:32] LABS: CALCIUM, SERUM 8.7 mg/dL (8.5-10.1); CREATININE 0.7 mg/dL (0.6-1.3); POTASSIUM 3.9 mmol/L (3.5-5.1)
[2020-11-13 08:00] VITALS: BP 141/86
[2020-11-13] MEDS: DIVALPROEX SODIUM 250 MG TABLET.DR PO SCH ×2 (08:52→17:46)
[2020-11-13] MEDS: OXYBUTYNIN CHLORIDE 5 MG TABLET PO SCH ×3 (08:52→17:46)
[2020-11-13] MEDS: VENLAFAXINE XR 75 MG CAP.SR.24H PO SCH (08:52)
[2020-11-13] MEDS: ASPIRIN EC 81 MG TABLET.DR PO SCH (08:52)
[2020-11-13] MEDS: PANTOPRAZOLE 40 MG TABLET.DR PO SCH (08:52)
[2020-11-13] MEDS: METFORMIN 500 MG TABLET PO SCH ×2 (08:52→17:47)
[2020-11-13] MEDS: BENAZEPRIL HCL 10 MG TABLET PO SCH (08:53)
[2020-11-13] MEDS: METOPROLOL TARTRATE 50 MG TABLET PO SCH (08:53)
[2020-11-13] MEDS: AMLODIPINE BESYLATE 5 MG TABLET PO SCH (08:54)
[2020-11-13] MEDS: APIXABAN 5 MG TABLET PO SCH ×2 (08:55→17:48)
[2020-11-13] MEDS: METHADONE HCL 10 MG TABLET PO SCH ×2 (08:59→21:49)
--- NOTE | 2020-11-13 10:30 | NUR ---
pt. endorsed to me by [email or web address]. in no distress.
[2020-11-13 16:00] VITALS: BP 145/86
[2020-11-13] MEDS: risperiDONE 1 MG TABLET PO SCH (17:46)
[2020-11-13] MEDS: ATORVASTATIN 40 MG TABLET PO SCH (17:47)
--- NOTE | 2020-11-13 18:00 | NUR ---
no change in status.
[2020-11-13 20:00] VITALS: BP 96/58
[2020-11-13] MEDS: CEFTRIAXONE 1 G in IV D5W 50 ML IV SCH (20:43)
--- NOTE | 2020-11-13 20:51 | NUR ---
MS RN NOTE: PRN MOM GIVEN PATIENT STATED," I HAD NUMBER 2 TODAY BUT IT WAS HARD, I NEED MEDICINE FOR CONSTIPATION." PRN MILK OF MAGNESIA 30 ML GIVEN ORDERED. WILL CONTINUE TO MONITOR.
[2020-11-13 21:42] VITALS: BP 132/72
--- NOTE | 2020-11-13 21:52 | NUR ---
MS RN NOTE PATIENT'S VITALS ARE 132/72, 75, 18, 97.7, 94% AT RA. NO ACUTE CHANGES NOTED. SCHEDULED METHADONE 30 MG PO GIVEN ORDERED. WILL CONTINUE TO MONITOR.
--- NOTE | 2020-11-14 06:59 | NUR ---
MS RN CLOSING NOTE PATIENT SLEPT WELL AT NIGHT. NO ACUTE CHANGES NOTED. MOM WAS GIVEN PER PATIENT REQUEST EVEN PATIENT HAD REGULAR BM BUT PATIENT STATED IT IS HARD, NO BM AT NIGHT AFTER MOM WAS GIVEN. WILL ENDORSE TO AM RN FOR CONTINUITY OF CARE.
--- NOTE | 2020-11-14 07:58 | NUR ---
RN OPENING NOTES RECEIVED PATIENT ON BED, AWAKE ALERT AND ORIENTED X 3. NO COMPLAINED OF PAIN AT THIS TIME. PATIENT IN NO APPARENT RESPIRATORY DISTRESS NOTED. WILL CONTINUE TO MONITOR.
[2020-11-14 08:00] VITALS: BP 157/83
[2020-11-14 09:42] LABS: CALCIUM, SERUM 8.8 mg/dL (8.5-10.1); CREATININE 0.7 mg/dL (0.6-1.3); MAGNESIUM 1.9 mg/dL (1.8-2.4); PHOSPHORUS 3.5 mg/dL (2.5-4.9); POTASSIUM 4.2 mmol/L (3.5-5.1)
[2020-11-14] MEDS: DIVALPROEX SODIUM 250 MG TABLET.DR PO SCH (10:03)
[2020-11-14] MEDS: BENAZEPRIL HCL 10 MG TABLET PO SCH (10:04)
[2020-11-14] MEDS: OXYBUTYNIN CHLORIDE 5 MG TABLET PO SCH ×2 (10:04→13:33)
[2020-11-14] MEDS: METOPROLOL TARTRATE 50 MG TABLET PO SCH (10:04)
[2020-11-14 10:05] VITALS: BP 157/83
[2020-11-14] MEDS: VENLAFAXINE XR 75 MG CAP.SR.24H PO SCH (10:05)
[2020-11-14] MEDS: ASPIRIN EC 81 MG TABLET.DR PO SCH (10:05)
[2020-11-14] MEDS: METFORMIN 500 MG TABLET PO SCH (10:05)
[2020-11-14] MEDS: PANTOPRAZOLE 40 MG TABLET.DR PO SCH (10:05)
[2020-11-14] MEDS: AMLODIPINE BESYLATE 5 MG TABLET PO SCH (10:05)
[2020-11-14] MEDS: METHADONE HCL 10 MG TABLET PO SCH (10:14)
[2020-11-14] MEDS: APIXABAN 5 MG TABLET PO SCH (10:16)
[2020-11-14] MEDS ORDERED: AMOX-430 PO (14:03)
[2020-11-14 15:30] LABS: THYROID STIMULATING HORMONE 2.176 uIU/mL (0.358-3.74); URIC ACID 5.3 mg/dL (2.6-7.2)
--- NOTE | 2020-11-14 16:12 | NUR ---
RN NOTES PATIENT IS ALERT AND ORIENTED X4. PATIENT IN NO APPARENT RESPIRATORY DISTRESS NOTED. NO COMPLAINED OF PAIN. PATIENT WAS GIVEN DISCHARGED INSTRUCTIONS AND PATIENT VERBALIZED UNDERSTANDING. PATIENT LEFT THE HOSPITAL IN MEDICALLY STABLE CONDITION. MANAGER NEWS BY 2 EMT VIA AMBULANCE.
== END 2020-11-14 17:01 | DRG 300 ==
LOC: ER 14:55 → TRANSITION 22:56 → MED 11-11 05:49
PROVIDERS: ADMIT Nurse Practitioner Acute Care
PROC: 0Y9H3ZZ Drainage of Right Lower Leg, Percutaneous Approach (ICD-10-PCS; principal; 2020-11-12)
DX: I82.412 Acute embolism and thrombosis of left femoral vein (principal); L03.115 Cellulitis of right lower limb; D68.69 Other thrombophilia; E22.2 Syndrome of inappropriate secretion of antidiuretic hormone; L03.116 Cellulitis of left lower limb; I89.0 Lymphedema, not elsewhere classified; Z20.828 Contact with and (suspected) exposure to other viral communicable diseases; E78.5 Hyperlipidemia, unspecified; W18.30XA Fall on same level, unspecified, initial encounter; E87.6 Hypokalemia; F17.210 Nicotine dependence, cigarettes, uncomplicated; G89.29 Other chronic pain; I10 Essential (primary) hypertension; E66.9 Obesity, unspecified; Z68.35 Body mass index [BMI] 35.0-35.9, adult; I87.8 Other specified disorders of veins; Z79.84 Long term (current) use of oral hypoglycemic drugs; B35.1 Tinea unguium; R53.1 Weakness; M54.30 Sciatica, unspecified side; S80.11XA Contusion of right lower leg, initial encounter; X58.XXXA Exposure to other specified factors, initial encounter; Y93.9 Activity, unspecified; Y92.89 Other specified places as the place of occurrence of the external cause; M21.962 Unspecified acquired deformity of left lower leg; E11.9 Type 2 diabetes mellitus without complications
CPT/HCPCS: 36415; 71045-TC; 73590-TC; 73630-TC; 73718-TC; 80048-TC; 80061-TC; 80076-TC; 80202-TC; 83605-TC; 83735-TC; 84100-TC; 84443-TC; 84484-TC; 84550-TC; 85025-TC; 85730-TC; 87040-TC; 87070-TC; 87075-TC; 87081-TC; 87086-TC; 93970-TC; 97110-TC; 97112-TC; 97530-TC; C9803; G0378; J0696; J1650; J2405; J3370; J3475; J3490; J7030; J7040; J7060

== ENCOUNTER 2021-01-23 12:32 | Inpatient (IN) | payer MEDICARE, OTHER ==
[~2021-01-23] VITALS: Ht 162.6 cm; Wt 84.4 kg
[~2021-01-23 12:32] MED LIST changes: +AMLO-212 PO; +AMOX-430 PO; -ARIP10TA9 PO; -ASPI-1169 PO; +ASPI-1420 PO; +DEXL60CA3 PO; +DIVA-76 PO; -METF-440 PO; +METF-442 PO; +METO100T14 PO; +OXYB5TAB16 PO
[2021-01-23 13:27] LABS: HEMOGLOBIN 11.6 g/dL (11.5-14.8)
[2021-01-23] MEDS ORDERED: IV NS 0.9% 1,000 ML BAG IV ONE (13:30)
[2021-01-23 13:31] LABS: BASOPHILS # (AUTO) 0.1 /CMM (0.0-0.2); BASOPHILS % (AUTO) 0.6 % (0.0-2.0); EOSINOPHILS % (AUTO) 0.8 % (0.0-6.0); HEMATOCRIT 37 % (33-45); LYMPHOCYTES # (AUTO) 3.4 /CMM (0.8-4.8); LYMPHOCYTES % (AUTO) 23.4 % (20.0-44.0); MEAN CORPUSCULAR HGB CONC 32 g/dl (31.0-36.0); MEAN CORPUSCULAR VOLUME 86 fL (82-100); MONOCYTES # (AUTO) 0.9 /CMM (0.1-1.30); MONOCYTES % (AUTO) 6.5 % (2.0-12.0); NEUTROPHILS % (AUTO) 68.7 % (43.0-81.0); PLATELET COUNT (AUTO) 332 /CMM (150-450); RED BLOOD CELL COUNT(AUTO) 4.26 MIL/uL (4.0-5.2); WHITE BLOOD COUNT (AUTO) 14.5 K/uL (4.3-11.0)
[2021-01-23 13:35] LABS: BILIRUBIN,URINE MODERATE (NEGATIVE); COLOR,URINE YELLOW (YELLOW); LEUKOCYTE ESTERASE ,URINE Moderate (NEGATIVE); NITRITE, URINE Negative (NEGATIVE); PH,URINE 5.5 (5.0-8.0); PROTEIN,URINE 30 mg/dl (NEGATIVE); UGLUCOSE Negative (NEGATIVE)
[2021-01-23 13:42] LABS: CALCIUM, SERUM 9.1 mg/dL (8.5-10.1); CARBON DIOXIDE 27 mmol/L (21-32); CHLORIDE 104 mmol/L (98-107); CREATININE 1.4 mg/dL (0.6-1.3); GLUCOSE 96 mg/dL (74-106); POTASSIUM 5.1 mmol/L (3.5-5.1); SODIUM SERUM 139 mmol/L (136-145); UREA NITROGEN, BLOOD 40 mg/dL (7-18)
--- NOTE | 2021-01-23 13:45 | NUR ---
MOVE SHEET SUBMITTED AND CALLED FOR MS BED.
[2021-01-23 13:46] LABS: ALANINE AMINOTRANSFERASE 10 U/L (12-78); ALKALINE PHOSPHATASE 91 U/L (46-116); ASPARTATE AMINOTRANSFERASE 12 U/L (15-37); BILIRUBIN,TOTAL 0.3 mg/dL (0.2-1.0); LIPASE 37 U/L (73-393); TOTAL PROTEIN, SERUM 7.5 g/dL (6.4-8.2)
[2021-01-23] MEDS ORDERED: HYDR-4209 PO (13:47)
[2021-01-23] MEDS ORDERED: MAGN400O6 PO (13:47)
[2021-01-23] MEDS ORDERED: DOCU-141 PO (13:47)
[2021-01-23] MEDS ORDERED: NA P133E RC (13:47)
[2021-01-23] MEDS ORDERED: BISA10SU11 RC (13:47)
[2021-01-23] MEDS ORDERED: PANT40TA2 PO (13:47)
[2021-01-23] MEDS ORDERED: APIX5TAB PO (13:47)
[2021-01-23] MEDS ORDERED: ACET325T53 PO (13:47)
[2021-01-23 13:51] LABS: BACTERIA,URINE 2+ /HPF (None Seen); SQUAMOUS EPITHELIAL CELL,UR Few /HPF (None Seen); WBC,URINE 21-50 /HPF (0-3)
--- NOTE | 2021-01-23 13:51 | NUR ---
[facility] CALLED ASSESSOR PAGED.
[2021-01-23] MEDS ORDERED: CEFTRIAXONE 1 G in IV D5W 50 ML IV ONE (14:00)
[2021-01-23 14:07] LABS: SERUM AMMONIA < 10 umol/L (11-32)
[2021-01-23] MEDS ORDERED: CEFTRIAXONE 1GM BAG (ER ONLY) 50 ML IV ONE (16:17)
--- NOTE | 2021-01-23 17:17 | NUR ---
For admit to 107 per Nursing sup
--- NOTE | 2021-01-23 17:38 | NUR ---
pt stable admitted [address] dr shannon . gave report to wm bertram stable for transfer
[2021-01-23] MEDS ORDERED: ACETAMINOPHEN 325 MG TABLET PO PRN (19:00)
[2021-01-23] MEDS ORDERED: BISACODYL SUPP (10 MG) 10 MG/SUPP.RECT SUPP.RECT RC PRN (19:00)
[2021-01-23] MEDS: ATORVASTATIN 40 MG TABLET PO SCH (19:00)
[2021-01-23] MEDS: APIXABAN 5 MG TABLET PO SCH (19:00)
[2021-01-23] MEDS: OXYBUTYNIN CHLORIDE 5 MG TABLET PO SCH (19:00)
[2021-01-23] MEDS ORDERED: HYDROCODONE/APAP 5/325MG TABLET PO PRN (19:00)
[2021-01-23] MEDS ORDERED: MAGNESIUM HYDROXIDE 30 ML UDC PO PRN (19:00)
--- NOTE | 2021-01-23 19:05 | NUR ---
RECEIVED PT ON BED AWAKE BUT VERY LETHARGIC, A/O X1 ON ROOM AIR SPO2 98% NO SIGN AND SYMPTOMS OF SOB, HAVE R AC IV PATENT AND FLUSHED, INITIAL ADMISSION ASSESSMENT DONE, HEAD TO TOE ASSESSMENT DONE, BED ON LOWEST POSITION AND LOCKED SIDE RAILS UP X2 CALL LIGHT WITHIN REACH WILL CONT TO MONITOR
--- NOTE | 2021-01-23 19:30 | NUR ---
RN NOTES RECEIVED PT FROM ER VIA [facility]ILCIA. A/O X1, KNOWS NAME. ON ROOM AIR SATURATING @98% RAC #20 INTACT, PATENT AND FLUSHED. NOTED BLE EDEMA AND DISCOLORATION. PICTURE PLACED IN CHART. NO BELONGINGS. RIGHT NARE PIERCING NOTED. NO PAIN REPORTED. SAFETY MEASURES IN PLACE. WILL ENDORSE TO NIGHT NURSE FOR DYLAN.
[2021-01-23] MEDS: IV NS 0.9% 1,000 ML IV SCH (19:37)
--- NOTE | 2021-01-23 19:45 | NUR ---
UNABLE TO ADMINISTER THE SCHEDULED PO MEDICATION DUE TO PATIENT IS VERY LETHARGIC AND UNABLE TO SWALLOW PROPERLY VERY HIGH RISK FOR ASPIRATION CHARGE MADE AWARE, MD MADE AWARE
[2021-01-23 20:00] VITALS: BP 113/76
[2021-01-23] MEDS: DOXYCYCLINE HYCLATE (100 MG) 100 MG TABLET PO SCH (21:00)
[2021-01-24 04:00] VITALS: BP 154/84
[2021-01-24 06:25] LABS: BASOPHILS # (AUTO) 0.2 /CMM (0.0-0.2); BASOPHILS % (AUTO) 1.6 % (0.0-2.0); EOSINOPHILS % (AUTO) 3.4 % (0.0-6.0); HEMATOCRIT 36 % (33-45); HEMOGLOBIN 11.3 g/dL (11.5-14.8); LYMPHOCYTES # (AUTO) 3.9 /CMM (0.8-4.8); LYMPHOCYTES % (AUTO) 30.7 % (20.0-44.0); MEAN CORPUSCULAR HGB CONC 31 g/dl (31.0-36.0); MEAN CORPUSCULAR VOLUME 86 fL (82-100); MONOCYTES % (AUTO) 7.8 % (2.0-12.0); NEUTROPHILS # (AUTO) 7.3 /CMM (1.8-8.9); NEUTROPHILS % (AUTO) 56.5 % (43.0-81.0); PLATELET COUNT (AUTO) 269 /CMM (150-450); WHITE BLOOD COUNT (AUTO) 12.8 K/uL (4.3-11.0)
--- NOTE | 2021-01-24 06:41 | NUR ---
RECEIVED CALL FROM DR. LÓPEZ WITH ORDER TO CHANGE THE DIET OF THE PT TO PUREED DIET FOR NOW NOTED AND CARRIED OUT
--- NOTE | 2021-01-24 07:30 | NUR ---
RN OPENING NOTES Patient is alert and oriented x 1/2. No attempts of getting up noted. Patient noted with left wrist 20 gauze. No c/o pain or discomfort. Patient is on room air saturating 99%. Bed is in lowest and locked position. Will continue to monitor. Call light within reach.
[2021-01-24 08:00] VITALS: BP 137/66
[2021-01-24 08:01] LABS: CALCIUM, SERUM 8.8 mg/dL (8.5-10.1); CREATININE 1.1 mg/dL (0.6-1.3); POTASSIUM 4.7 mmol/L (3.5-5.1)
[2021-01-24] MEDS: METHADONE HCL 10 MG TABLET PO SCH (08:14)
[2021-01-24] MEDS: DOXYCYCLINE HYCLATE (100 MG) 100 MG TABLET PO SCH ×2 (08:19→20:34)
[2021-01-24] MEDS: AMLODIPINE BESYLATE 5 MG TABLET PO SCH (08:19)
[2021-01-24] MEDS: METFORMIN 500 MG TABLET PO SCH ×2 (08:19→17:15)
[2021-01-24] MEDS: VENLAFAXINE XR 75 MG CAP.SR.24H PO SCH (08:19)
[2021-01-24] MEDS: BENAZEPRIL HCL 10 MG TABLET PO SCH (08:20)
[2021-01-24] MEDS: OXYBUTYNIN CHLORIDE 5 MG TABLET PO SCH ×3 (08:20→17:15)
[2021-01-24] MEDS: METOPROLOL SUCCINATE 50 MG TAB.SR.24H PO SCH (08:20)
[2021-01-24] MEDS: PANTOPRAZOLE 40 MG TABLET.DR PO SCH (08:20)
[2021-01-24] MEDS: CEFTRIAXONE 1 G in IV D5W 50 ML IV SCH (08:21)
[2021-01-24] MEDS: APIXABAN 5 MG TABLET PO SCH ×2 (08:22→17:06)
[2021-01-24] MEDS: IV NS 0.9% 1,000 ML IV SCH ×2 (08:28→22:24)
[2021-01-24 12:00] VITALS: BP 133/76
[2021-01-24 16:00] VITALS: BP 126/61
--- NOTE | 2021-01-24 16:00 | NUR ---
RIGHT FOREARM 18 GAUZE NOTED NOT TO BE PATENT, IV SITE DISCONTINUED,
[2021-01-24] MEDS: risperiDONE 1 MG TABLET PO SCH (17:15)
[2021-01-24] MEDS: ATORVASTATIN 40 MG TABLET PO SCH (17:15)
--- NOTE | 2021-01-24 18:50 | NUR ---
RN CLOSING NOTES Patient is alert and oriented x 1/2. No attempts of getting up noted. Patient noted with right ac midline 18 gauze and left wrist peripheral line connected to noraml saline running at 75ml/hour. No c/o pain or discomfort. Patient is on room air saturating 99%. Bed is in lowest and locked position. Will endorse to next shift for DYLAN.
--- NOTE | 2021-01-24 19:35 | NUR ---
RN NOTES, Patient in bed a/o x2, on room air, breathing even and unlabored, no s/s of any sob/acute distress noted at this time, right upper arm midline 18 gauze and left wrist peripheral line in placed, ivf infusing well and patient tolerated well, Bed locked and lowest position, call light w/i reach, will continue to monitor patient closely.
[2021-01-24 20:00] VITALS: BP 141/95
[2021-01-24] MEDS: TRAZODONE 50 MG TABLET PO PRN (22:24)
[2021-01-25 04:00] VITALS: BP 138/90
--- NOTE | 2021-01-25 06:58 | NUR ---
RN NOTES, Patient in bed , sleeping at this time, on room air, tolerated well, breathing even and unlabored, no s/s of any sob/acute distress noted at this time, no significant change in condition during the night, Bed locked and lowest position, call light w/i reach, will endorse continuity of care to oncoming nurse.
--- NOTE | 2021-01-25 07:30 | NUR ---
MS RN AM NOTES PATIENT IN BED, AO X 1, CONFUSED, ON ROOM AIR, NOT IN ANY DISTRESS, DENIES PAIN AT THIS TIME, MILAGRO MIDLINE WITH ONGOING 0.9 NS AT 75 ML/HR, SITE CLEAR, AND LEFT WRIST G 20 IV ACCESS, BOTH FLUSHES WELL SITE CLEAR. PUREED DIET, CRUSHED MEDS,, SCABS NOTED TO BLE, BEDBOUND, UNABLE TO UNDERSTAND PLAN OF CARE, BED LOW LOCKED, CALL LIGHT WITHIN REACH, WILL CONTINUE TO MONITOR.
[2021-01-25 08:00] VITALS: BP 163/73
[2021-01-25] MEDS: CEFTRIAXONE 1 G in IV D5W 50 ML IV SCH (08:41)
[2021-01-25] MEDS: VENLAFAXINE XR 75 MG CAP.SR.24H PO SCH (08:42)
[2021-01-25] MEDS: PANTOPRAZOLE 40 MG TABLET.DR PO SCH (08:43)
[2021-01-25] MEDS: METHADONE HCL 10 MG TABLET PO SCH (08:43)
[2021-01-25] MEDS: OXYBUTYNIN CHLORIDE 5 MG TABLET PO SCH ×3 (08:43→17:15)
[2021-01-25] MEDS: METFORMIN 500 MG TABLET PO SCH ×2 (08:43→17:15)
[2021-01-25] MEDS: BENAZEPRIL HCL 10 MG TABLET PO SCH (08:44)
[2021-01-25] MEDS: DOXYCYCLINE HYCLATE (100 MG) 100 MG TABLET PO SCH (08:46)
[2021-01-25] MEDS: AMLODIPINE BESYLATE 5 MG TABLET PO SCH (08:47)
[2021-01-25] MEDS: METOPROLOL SUCCINATE 50 MG TAB.SR.24H PO SCH (08:47)
[2021-01-25] MEDS: APIXABAN 5 MG TABLET PO SCH ×2 (08:47→17:16)
[2021-01-25] MEDS ORDERED: IV NS 0.9% 1,000 ML IV PRN (09:30)
--- NOTE | 2021-01-25 09:30 | NUR ---
RN NOTES DUE MEDS GIVEN
--- NOTE | 2021-01-25 13:10 | NUR ---
RN NOTES PATIENT PULLED OUT HER LEFT WRIST IV ACCESS.
[2021-01-25 15:00] VITALS: BP 136/90
--- NOTE | 2021-01-25 16:18 | NUR ---
RN NOTES PER DR. LÓPEZ - IRINA METHADONE AND TO DO PSYCH CONSULT. FACESHEET FAXED TO [employer]. DR. ABREU ENTRY REP
[2021-01-25] MEDS: ATORVASTATIN 40 MG TABLET PO SCH (17:15)
[2021-01-25] MEDS: risperiDONE 1 MG TABLET PO SCH (17:15)
[2021-01-25 20:00] VITALS: BP 148/94
[2021-01-25 23:00] VITALS: BP 141/91
--- NOTE | 2021-01-25 23:00 | NUR ---
RN NOTES, PATIENT TRANSFERRED VIA BED TO [address] [place] [address] IN [facility] OD 2 CNAS AND ONE RN, ON ROOM AIR NO SOB/DISTRESS NOTED, WITH OPTIMAL O2 SAT LEVEL.
--- NOTE | 2021-01-25 23:15 | NUR ---
RN opening notes Received Pt from BERNARD Benavides. Pt is resting in bed comfortably. Pt is alert and orientedX1 with episode of confusion. Respiration is normal in room air with O2 sat is 99%. No SOB. No S/S of distress noted. MILAGRO midline# 18 is clean, intact, flushes well and SL. L and R soft mittens are intact, skin is warm to touch and circulation is checks Q 2hr. Safety precautions is maintained. Bed at low position, brakes locked, side railsupX2, hob elevated and call light is within reach. Will continue to monitor.
--- NOTE | 2021-01-26 06:50 | NUR ---
RN closing notes Pt is resting in bed comfortably. Pt is alert and orientedX1 with episode of confusion. Respiration is normal in room air with O2 sat is 99%. No SOB. No S/S of distress noted. VS is stable. Afebrile. MILAGRO midline# 18 is clean, intact, flushes well and SL. L and R soft mittens are intact, skin is warm to touch and circulation is checks Q 2hr. Kept Pt clean, dry and comfortable. All needs met and attended. Safety precautions is maintained. Bed at low position, brakes locked, side railsupX2, hob elevated and call light is within reach. Will endorse to morning nurse for DYLAN.
[2021-01-26 07:08] LABS: BASOPHILS # (AUTO) 0.2 /CMM (0.0-0.2); BASOPHILS % (AUTO) 1.3 % (0.0-2.0); EOSINOPHILS % (AUTO) 3.2 % (0.0-6.0); HEMATOCRIT 34 % (33-45); HEMOGLOBIN 11.3 g/dL (11.5-14.8); LYMPHOCYTES # (AUTO) 4.3 /CMM (0.8-4.8); LYMPHOCYTES % (AUTO) 38.2 % (20.0-44.0); MEAN CORPUSCULAR HGB CONC 33 g/dl (31.0-36.0); MEAN CORPUSCULAR VOLUME 84 fL (82-100); MONOCYTES # (AUTO) 1.1 /CMM (0.1-1.30); MONOCYTES % (AUTO) 9.7 % (2.0-12.0); NEUTROPHILS # (AUTO) 5.4 /CMM (1.8-8.9); NEUTROPHILS % (AUTO) 47.6 % (43.0-81.0); PLATELET COUNT (AUTO) 296 /CMM (150-450); RED BLOOD CELL COUNT(AUTO) 4.11 MIL/uL (4.0-5.2); WHITE BLOOD COUNT (AUTO) 11.3 K/uL (4.3-11.0)
[2021-01-26 07:26] LABS: CALCIUM, SERUM 8.9 mg/dL (8.5-10.1); CREATININE 0.8 mg/dL (0.6-1.3); POTASSIUM 3.9 mmol/L (3.5-5.1)
--- NOTE | 2021-01-26 07:46 | NUR ---
RN opening notes Patient is resting in bed comfortably. Pt is alert and orientedX1 with episode of confusion. Respiration is normal in room air with O2 sat is 99%. No SOB. No S/S of distress noted. MILAGRO midline# 18 is clean, intact, flushes well and SL. L and R soft mittens are intact, skin is warm to touch and circulation is checks Q 2hr. Safety precautions is maintained. Bed at low position, brakes locked, side railsupX2, hob elevated and call light is within reach. Will continue to monitor.
[2021-01-26 08:00] VITALS: BP_SYST 118; BP_SYST 141; BP_DIAS 75; BP_DIAS 78
[2021-01-26] MEDS: VENLAFAXINE XR 75 MG CAP.SR.24H PO SCH (10:26)
[2021-01-26] MEDS: BENAZEPRIL HCL 10 MG TABLET PO SCH (10:27)
[2021-01-26] MEDS: PANTOPRAZOLE 40 MG TABLET.DR PO SCH (10:28)
[2021-01-26] MEDS: METFORMIN 500 MG TABLET PO SCH ×2 (10:29→16:18)
[2021-01-26] MEDS: OXYBUTYNIN CHLORIDE 5 MG TABLET PO SCH ×3 (10:29→16:14)
[2021-01-26] MEDS: AMLODIPINE BESYLATE 5 MG TABLET PO SCH (10:29)
[2021-01-26] MEDS: METOPROLOL SUCCINATE 50 MG TAB.SR.24H PO SCH (10:30)
[2021-01-26] MEDS: APIXABAN 5 MG TABLET PO SCH ×2 (10:34→16:17)
[2021-01-26 12:00] VITALS: BP 131/94
[2021-01-26 16:00] VITALS: BP_SYST 112; BP_SYST 119; BP_SYST 130; BP_DIAS 70; BP_DIAS 72; BP_DIAS 82
[2021-01-26] MEDS: ATORVASTATIN 40 MG TABLET PO SCH (18:00)
[2021-01-26] MEDS: risperiDONE 1 MG TABLET PO SCH (18:00)
--- NOTE | 2021-01-26 19:30 | NUR ---
MS/RN OPENING NOTES RECEIVED PATIENT IN BED RESTING. PATIENT IS ALERT AND ORIENTED X 1. PATIENT BREATHING IS EVEN AND UNLABORED. PATIENT SHOWS NO SIGNS OF SOB OR RESPIRATORY DISTRESS NOTED. IV ACCESS ON MILAGRO INTACT FLUSHING WELL. PATIENT HAS SOFT MITS BILATERAL IN PLACE, GOOD HAND CIRCULATION NOTED. SAFETY MEASURES ARE IN PLACE. BED IS LOCKED AND PLACED IN THE LOW POSITION. CALL LIGHT IS WITHIN REACH. WILL CONTINUE WITH PATIENT PLAN OF CARE.
[2021-01-26 20:00] VITALS: BP 130/59
--- NOTE | 2021-01-26 22:15 | NUR ---
MS/RN NOTES GAVE REPORT TO BERNARD MARIEE FOR DYLAN. PATIENT V/S WNL, PATIENT IN NO ACUTE DISTRESS. Addendum: 01/26/21 at 2827 by ISAAK MCCAIN RN REPORT RECIEVED
[2021-01-26] MEDS: TRAZODONE 50 MG TABLET PO PRN (23:24)
--- NOTE | 2021-01-27 07:30 | NUR ---
PT RECEIVED RESTING COMFORTABLY IN BED. NO S/S OR C/O PAIN OR DISTRESS NOTED. SIDE RAILS UP X2, CALL LIGHT LEFT WITHIN REACH. WILL CONTINUE PLAN OF CARE.
[2021-01-27 08:00] VITALS: BP 128/81
[2021-01-27] MEDS: PANTOPRAZOLE 40 MG TABLET.DR PO SCH (09:42)
[2021-01-27] MEDS: METFORMIN 500 MG TABLET PO SCH ×2 (09:43→17:09)
[2021-01-27] MEDS: OXYBUTYNIN CHLORIDE 5 MG TABLET PO SCH ×3 (09:43→17:09)
[2021-01-27] MEDS: METOPROLOL SUCCINATE 50 MG TAB.SR.24H PO SCH (09:43)
[2021-01-27] MEDS: VENLAFAXINE XR 75 MG CAP.SR.24H PO SCH (09:43)
[2021-01-27] MEDS: BENAZEPRIL HCL 10 MG TABLET PO SCH (09:44)
[2021-01-27] MEDS: APIXABAN 5 MG TABLET PO SCH ×2 (09:44→17:11)
[2021-01-27] MEDS: AMLODIPINE BESYLATE 5 MG TABLET PO SCH (09:44)
[2021-01-27 10:00] VITALS: BP 128/81
[2021-01-27 16:00] VITALS: BP 144/67
[2021-01-27] MEDS: risperiDONE 1 MG TABLET PO SCH (17:09)
[2021-01-27] MEDS: ATORVASTATIN 40 MG TABLET PO SCH (17:09)
--- NOTE | 2021-01-27 18:47 | NUR ---
PT TRANSFERRED TO SNF DISCHARGE INSTRUCTIONS GIVEN ORDERED. ENCOURAGED TO FOLLOW UP WITH PMD INSTRUCTED. ALL QUESTIONS AND CONCERNS ADDRESSED. PATIENT VERBALIZED UNDERSTANDING. MEDICATION RECONCILIATION FORM COMPLETED AND COPY GIVEN TO PATIENT. IV REMOVED WITH CATHETER INTACT, PRESSURE DRESSING APPLIED. PATIENT TAKEN TO VEHICLE WITH ALL PERSONAL BELONGINGS. NO DISTRESS NOTED AT TIME OF DEPARTURE. REPORT GIVEN TO KAYE AT [facility]
[2021-01-27] MEDS ORDERED: MIRTAZAPINE 15 MG TABLET PO SCH (22:00)
== END 2021-01-27 18:45 | DRG 91 ==
LOC: ER 12:37 → MEDSG1 17:57 → MED 01-25 23:01
PROVIDERS: ADMIT Internal Medicine; ATTEND Internal Medicine
PROC: 05H533Z Insertion of Infusion Device into Right Subclavian Vein, Percutaneous Approach (ICD-10-PCS; principal; 2021-01-24)
PROC: B546ZZA Ultrasonography of Right Subclavian Vein, Guidance (ICD-10-PCS; 2021-01-24)
DX: G92 Toxic encephalopathy (principal); N17.0 Acute kidney failure with tubular necrosis; F33.2 Major depressive disorder, recurrent severe without psychotic features; F20.9 Schizophrenia, unspecified; F17.210 Nicotine dependence, cigarettes, uncomplicated; F03.90 Unspecified dementia, unspecified severity, without behavioral disturbance, psychotic disturbance, mood disturbance, and anxiety; R62.7 Adult failure to thrive; Z86.718 Personal history of other venous thrombosis and embolism; Z90.81 Acquired absence of spleen; Z85.3 Personal history of malignant neoplasm of breast; I10 Essential (primary) hypertension; E11.9 Type 2 diabetes mellitus without complications; E66.9 Obesity, unspecified; G47.00 Insomnia, unspecified; T40.3X5A Adverse effect of methadone, initial encounter; Y92.129 Unspecified place in nursing home as the place of occurrence of the external cause; J44.9 Chronic obstructive pulmonary disease, unspecified; Z68.31 Body mass index [BMI] 31.0-31.9, adult; Z79.84 Long term (current) use of oral hypoglycemic drugs; Z20.822 Contact with and (suspected) exposure to COVID-19; Z79.01 Long term (current) use of anticoagulants; Z90.13 Acquired absence of bilateral breasts and nipples
CPT/HCPCS: 36415; 71045-TC; 80048-TC; 80076-TC; 81001; 82140-TC; 82962-TC; 83605-TC; 83690-TC; 84484-TC; 85025-TC; 85730-TC; 87081-TC; 87086-TC; G0378; J0696; J7030; J7060; U0003